=== PATIENT | female | born 1935 | race Caucasian/White ===

== ENCOUNTER → 2017-08-29 11:39 | Outpatient (CLI) | payer MEDICARE, OTHER, SELFPAY ==
--- NOTE | 2017-08-29 11:46 | NVE_ITS ---
Venous Exam Indications: 729.5 Pain in limb. IMPRESSIONS 1. There is no evidence of significant Reflux. 2. No evidence of deep or superficial vein thrombosis involving the left lower extremity Left lower extremity venous duplex evaluation. Doppler flow study including spectral analysis, color and sanchez scale imaging. Location: Vascular laboratory. Patient status: Outpatient. CRITICAL FINDINGS - Reported to: MADELYN - Read back and verified. - 08/29/17 - 1215 - NONE Tables: Venous flow and imaging: + +-------+ + Location Overall Flow properties + +-------+ + Left common femoral Patent Normal phasicity; spontaneous; normal augmentation; compressible + +-------+ + Left saphenofemoral junction Patent Compressible + +-------+ + Left profunda femoral Patent Compressible + +-------+ + Left femoral Patent Normal phasicity; spontaneous; normal augmentation; compressible + +-------+ + Left greater saphenous Patent Normal phasicity; spontaneous; normal augmentation; compressible + +-------+ + Left popliteal Patent Normal phasicity; spontaneous; normal augmentation; compressible + +-------+ + Left posterior tibial Patent Compressible + +-------+ + Left peroneal Patent Compressible + +-------+ + Left gastrocnemius Patent Compressible + +-------+ + Left soleal Patent Compressible + +-------+ + (Report amended ) Electronically signed by: Kirill Washburn [id number]
== END ==
PROVIDERS: PCP Internal Medicine; Visit Provider Internal Medicine
DX: M79.605 Pain in left leg (principal); R60.0 Localized edema
CPT/HCPCS: 93971

== ENCOUNTER → 2017-09-15 14:00 | Outpatient (CLI) | payer MEDICARE, OTHER, SELFPAY ==
--- NOTE | 2017-09-15 14:07 | XR_ITS ---
EXAM: XR lumbar spine min 4V HISTORY: Generalized back pain ITS.REASON: LUMBAGO WITH LT SCIATICA ORDERING PHYSICIAN: Amber Saunders PATIENT AGE: 82 years COMPARISON: Lumbar spine 10/27/2016 FINDINGS: There is normal lordotic curvature of the lumbar spine. There is moderate kyphotic curvature of the thoracic spine. There are multilevel degenerative changes with disc space narrowing and anterior ossific spurring most prominent at the T11-12, T12-L1 and L1-2 levels. There are hypertrophic facet changes at multiple levels especially L4-5 and L5-S1. There is generalized osteopenia. There is no definite pars defect. The SI joints appear normal. There is prominent diffuse arteriosclerotic calcification of the abdominal aorta without evidence of aneurysm. IMPRESSION: Prominent diffuse degenerative changes basically stable from the previous exam most prominent at the thoracolumbar junction, no acute compression fracture seen
--- NOTE | 2017-09-15 14:07 | XR_ITS ---
XR knee LT 4V Comparison: Left tib-fib 1718 History: Pain at the knee. Difficult to position unable to stand. Left lateral knee pain Technique: Weightbearing AP, lateral and Pozo views were performed as well as oblique. Findings: . There is narrowing at the lateral compartment most evident towards the the lateral margin of the narrowed lateral compartment... Degenerative Arthritic changes most evident here at the lateral compartment... Chondrocalcinosis was better seen on September 06, 2017 left lower leg radiograph in seen to involving at both medial lateral compartment; but was most evident at lateral compartment. Chondrocalcinosis can be seen often is degenerative in nature but can be seen with pseudogout and other conditions. The lateral film shows a definite moderate/generous joint effusion at suprapatellar bursa.. The sunrise view shows subtle lateral tilt and very slight lateral bias of the patella at patellofemoral joint. Mild diffuse demineralization. Impression: ======== Joint effusion Narrowing, & degenerative arthritic changes most evident developing at the lateral compartment
== END ==
PROVIDERS: PCP Internal Medicine Adolescent Medicine; Visit Provider Nurse Practitioner Family
DX: M54.42 Lumbago with sciatica, left side (principal); M25.562 Pain in left knee; G89.29 Other chronic pain
CPT/HCPCS: 72110; 73564

== ENCOUNTER → 2017-09-19 09:57 | Outpatient (REF) | payer MEDICARE, OTHER, SELFPAY ==
[2017-09-19 10:13] LABS: INR 1.11 (0.9-1.1); Prothrombin Time 11.4 seconds (9.4-11.8)
== END ==
LOC: LAB 09:57
PROVIDERS: Visit Provider Internal Medicine Adolescent Medicine
DX: Z79.01 Long term (current) use of anticoagulants (principal); Z51.81 Encounter for therapeutic drug level monitoring
CPT/HCPCS: 85610

== ENCOUNTER → 2017-12-10 14:53 | Outpatient (CLI) | payer MEDICARE, OTHER, SELFPAY ==
[2017-12-10 15:30] LABS: Basophils % 0.2 % (0.1-2.0); Eosinophils # 0.2 K/mm3 (0.0-0.4); Hematocrit 40.3 % (37.0-47.0); Hemoglobin 12.6 g/dL (12.2-16.2); Lymphocytes # 1.9 K/mm3 (0.7-4.5); Lymphocytes % 17.1 K/mm3 (10-50); Mean Corpuscular HGB Conc 31.3 g/dL (31.8-35.4); Mean Corpuscular Hemoglobin 29.7 pg (27.0-31.2); Mean Platelet Volume 8.1 fl (7.4-10.4); Monocytes # 0.6 K/mm3 (0.1-1.0); Monocytes % 5.9 % (1.7-9.3); Neutrophils # 8.2 K/mm3 (1.8-7.8); Neutrophils % 74.8 % (37.0-80.0); Platelet Count 287 K/mm3 (142-424); Red Blood Count 4.24 M/mm3 (4.20-5.40); White Blood Count 10.9 K/mm3 (4.8-10.8)
[2017-12-10 15:37] LABS: INR 1.29 (0.9-1.1); Prothrombin Time 13.2 seconds (9.4-11.8)
== END ==
PROVIDERS: PCP Internal Medicine Adolescent Medicine; Visit Provider Nurse Practitioner Family
DX: Z79.899 Other long term (current) drug therapy (principal); Z79.01 Long term (current) use of anticoagulants
CPT/HCPCS: 85025; 85610

== ENCOUNTER 2018-01-24 14:00 | Outpatient (RCR) | payer MEDICARE, OTHER, SELFPAY ==
--- NOTE | 2017-11-17 13:39 | HMH.PTOPWND ---
Rehab Outpt Wound Evaluation Rehab OP Wound Evaluation Start: 11/17/17 12:58 Freq: Status: Active Protocol: Document 11/17/17 13:30 PHORNE (Rec: 11/17/17 13:39 PHORNE [id number]) Electronically Signed By Nicolas Ramirez, PT 11/17/17 13:30 Subjective/History History History Pt is 82 yowf who presents with c/o julianne LE edema and tenderness x ~ 3-4 mos. Pt reports she did have increased pain initially, but no pain now. She is resident of [facility] and has limited mobility at baseline. She reports left LE worse than left and julianne LE are very tender to palpation. SHe has hx of CHANO, left elbow ORIF, cardiac arrythmia, appy. Subjective Subjective She currently reports no pain, but has previously had considerable pain especially in the left lower leg. Wound Eval Wound Right Anterior [place] Wound Type Skin Tear Is This a Chronic Wound No Wound Length (cm) 1.0 Wound Width (cm) 1.5 Wound Bed Appearance Beefy Red Percentage Granulated (%) 100 Wound Margins Description Well Defined Surrounding Tissue Appearance [place] Purple Edema Type Pitting Edema Degree 3+ Query Text:1+ Trace, Barely Detectable, Rebound 15-30 seconds 2+ Moderate, Slight Indentation, Rebound 10-20 seconds 3+ Deep, Deeper Indentation, Rebound > 30 seconds 4+ Very Deep, Rebound > 60 seconds Edema Appearance Shiny Tight Puffy Open Sores Drainage Description Serous Drainage Amount Small Primary Dressing Silver Dressing Comment Opticell Ag Dressing Change Patient Tolerance Tolerated Well Lymphedema Eval Classification of Lymphedema Secondary Lymphedema Yes: CVI Stemmer's sign Stemmer's Sign no Stage of Lymphedema Lymphedema stages Stage I (Pitting edema, reduces w/ elevation, no fibrosis) Skin Changes Dry Skin Yes Taut, Shiny Skin Yes Redness Yes Wounds Yes Discoloration of Skin Yes
== END 2018-01-24 14:05 | disposition home or self-care (01) ==
LOC: PT 14:00
PROVIDERS: Visit Provider Nurse Practitioner Family
DX: R60.9 Edema, unspecified (principal)
CPT/HCPCS: 97140; 97163; 97760

== ENCOUNTER 2019-05-10 13:00 | Outpatient (RCR) | payer MEDICARE, OTHER, SELFPAY ==
--- NOTE | 2019-05-08 13:43 | HMH.PTOPWND ---
Rehab Outpt Wound Evaluation Rehab OP Wound Evaluation Start: 05/08/19 13:00 Freq: Status: Active Protocol: Document 05/08/19 13:29 RADHA (Rec: 05/08/19 13:43 PHORNE [id number]) Electronically Signed By Nicolas Ramirez, PT 05/08/19 13:29 Subjective/History History History Pt is 84 yowf who presents with c/o B LE edema for many years, now worse x ~ 2 mos and worse in R LE vs L LE. She presents with significant 4+ pitting edema and erythema. She is very tender to palpation on B gastroc, but is already taking coumadin for anti-coagulation at baseline. She reports she does not walk, only transfers from bed to chair. She also sleeps in a recliner due to chronic LBP. She has PMH of HTN, CHANO, Appy, A-fib, chronic LBP, and cellulitis. She also presents with a possible skin tear on the posterior L calf due to hitting her leg [facility] wheelchair [facility] Subjective Subjective Currently no c/o pain at rest, 3/10 pain at worst, 4+ tenderness to palpation in B gastroc. Wound Eval Wound Left Posterior Lateral Calf Wound Type Skin Tear Is This a Chronic Wound No Wound Length (cm) 4.0 Wound Width (cm) 3.0 Wound Bed Appearance Dusky Red,Pale Wound Margins Description Well Defined Edema Type Pitting Edema Degree 4+ Query Text:1+ Trace, Barely Detectable, Rebound 15-30 seconds 2+ Moderate, Slight Indentation, Rebound 10-20 seconds 3+ Deep, Deeper Indentation, Rebound > 30 seconds 4+ Very Deep, Rebound > 60 seconds Edema Appearance Shiny,Puffy,Open Sores,Red Surrounding Tissue Temperature Warm Drainage Description Serosanguineous Drainage Amount Large Primary Dressing Absorbant Pad Comment opticell Wound Secondary Dressing Type Composite Comment optifoam gentle border Wound Debridement Amount of Tissue None Removed Dressing Change Con
== END 2019-05-10 13:05 | disposition home or self-care (01) ==
LOC: PT 13:00
PROVIDERS: PCP Internal Medicine Adolescent Medicine; Referring Provider Nurse Practitioner Family; Visit Provider Nurse Practitioner Family
DX: I89.0 Lymphedema, not elsewhere classified (principal)
CPT/HCPCS: 29580; 97140; 97163; 97597

== ENCOUNTER → 2019-10-12 11:52 | Outpatient (CLI) | payer MEDICARE, OTHER, SELFPAY ==
--- NOTE | 2019-10-12 12:00 | XR_ITS ---
PROCEDURE: XR ELBOW LT MIN 3V CLINICAL INDICATION: wires sticking out COMPARISON: CR ELBL3 ELBOW-LT-3 VIEWS from 05/24/2012 FINDINGS: One of the 2 metallic pins seen in the leg her non apparently has migrated posteriorly and either protrudes through or approximates the skin interface just posterior to the tip of the olecranon. There is a stable old apparently unfused fragment of the olecranon. The iiefwq-[id number]-exrxc wire remains in place. There is generalized osteopenia. The radial head is intact. IMPRESSION: Status post ORIF fracture of the olecranon with apparent old unfused fracture fragment and slight interval posterior migration of 1 of the 2 metallic pins which could be protruding through the skin surface as noted on the history. Dictated by: Dr. Lane Madsen MD 10/12/2019 12:[address] Madsen MD in [place] 10/12/2019 12:43
== END ==
PROVIDERS: PCP Internal Medicine Adolescent Medicine; Visit Provider Orthopaedic Surgery
DX: M25.522 Pain in left elbow (principal)
CPT/HCPCS: 73080

== ENCOUNTER 2019-10-16 06:08 | Day surgery (SDC) | payer MEDICARE, OTHER, SELFPAY ==
[2019-10-16] VITALS (7 sets, daily range): BP systolic 104–146; BP diastolic 62–93; PULSE 62–101; RESP 16–20; TEMP 36.2–36.5; O2SAT 92–98; BMI 31.8
--- NOTE | 2019-10-16 07:12 | P.PN_ITS ---
[facility] Anesthesia Checklist - Patient Identification Patient Identification: Arm Band, Verbal (Name & ) - Structural Data Admitted From: [place] ([facility], later [facility]) Planned Operative Procedure/s: Left elbow hardware removal Consent for Planned Operative Procedure(s) Verified: Yes Verified Documents: Surgical Consent, History and Physical - NPO Status Verified Time NPO: 20:00 - Chart Verification Results Verified: None - Additional verifications Anesthesia Reactions: Yes (a-fib) Hx Blood Transfusions: No Blood Transfusion Reaction: No - Airway Assessment C-Spine Mobility Assessed: Yes TMJ Mobility Assessed: Yes Dentition: Good Dentition - Neurological Assessment Level of Consciousness: Awake, Alert, Appropriate, Follows Commands Hx Seizures: No Numbness or tingling in extremities: No - Anesthesia Plan Anesthesia Risk discussed: Yes Anesthesia Plan: Verified ASA Class: III Anesthesia Type: MAC w/Block [facility] History I have reviewed the patient's past medical history: Yes Medical History: Reports:: Arrhythmia, Atrial Fibrillation, Cancer (skin), Congestive Heart Failure, Hyperlipidemia, Hypertension Denies:: Diabetes Mellitus Type 1, Diabetes Mellitus Type 2, Internal Pacemaker, MRSA, Seizures *Have you ever received a pneumonia vaccine?: No *Have you received a flu vaccine this season?: Yes Other Medical History: Reports: Hypothyroidism, Sinus Problems, Thyroid Disease, Other (cellulitis, spondylolosis). Denies: Blood Transfusion Reaction Anesthesia experience/problems:: None Laterality Cases: Left: Other Other Surgeries: Yes: Appendectomy, Hysterectomy-Total. No: Pacemaker Amputation: No Fractures: No - *Social History Last grade of school completed: 7th or 8th Smoking Status: Former smoker Alcohol Intake: never Substance Use Type: denies use *Occupational Status:: retired Housing: [facility] *Travel in the last 8 weeks: None Family Hx:: Coronary Artery Disease, Diabetes
[2019-10-16 07:20] LABS: Coronavirus 19 IgG Antibody Negative (Negative); Coronavirus 19 IgM Antibody Negative (Negative)
--- NOTE | 2019-10-16 07:30 | ECG_ITS ---
APPROVED REPORT Exam: Resting ECG HR:89 bpm ECG Measurements Heart Rate 89 AXES QRSd 68 QRS -20 QT 342 T 15 QTc 416 <Conclusion> Atrial fibrillation Dig Effect Abnormal ECG Electronically signed by : Abraham Cook, 10/16/2019 13:46:32
--- NOTE | 2019-10-16 09:04 | XR_ITS ---
PROCEDURE: XR ELBOW LT 2V CLINICAL INDICATION: HARDWARE REMOVAL LEFT ELBOW COMPARISON: CR XR ELBOW LT MIN 3V from 10/12/2019 FINDINGS: A single fluoroscopic spot film in the lateral projection shows removal of the 2 orthopedic pins and the kricjr-mb-sclvo wire. The unfused bone fragment of the tip of the olecranon is again seen. Fluoroscopic time was 9 seconds. IMPRESSION: Satisfactory removal of orthopedic hardware Dictated by: Dr. Lane Madsen MD 10/16/2019 09:[address] Madsen MD in [place] 10/16/2019 09:21
--- NOTE | 2019-10-16 09:13 | XR_ITS ---
PROCEDURE: XR ELBOW LT 2V CLINICAL INDICATION: post op removal of orthopedic pins and wire COMPARISON: CR ELBL3 ELBOW-LT-3 VIEWS from 05/24/2012 FINDINGS: On the lateral projection again noted is the bone fragment adjacent to the tip of the olecranon probably representing old unfused fracture fragment or possibly heterotopic new bone formation in the triceps tendon near the attachment to the olecranon. There is minor cortical irregularity of the coronoid process of the olecranon fossa probably posttraumatic. The radial head is intact. IMPRESSION: Satisfactory removal of orthopedic pins and wire Dictated by: Dr. Lane Madsen MD 10/16/2019 10:[address] Madsen MD in [place] 10/16/2019 10:12
--- NOTE | 2019-10-16 12:25 | HMH.OPNOTE ---
Date of procedure: 10/16/19 Pre-op Diagnosis:: painful orthopaedic hardware, L elbow Post-op Diagnosis:: painful orthopaedic hardware, L elbow Procedure performed:: removal of hardware L elbow Surgeon:: Viviane Meza MD Back Tender(s):: Shelley Arreola SEARCH CONSULTANT:: Stanley Santana Anesthesia: MAC, regional, local Estimated blood loss (mL): 10 Clinical Note:: 84yo F s/p ORIF L olecranon fracture in September 2010 by another physician. The operative report is not available at this time. The patient reports doing well post-operatively, but she's had prominent hardware since surgery. It hasn't bothered her so it's been left alone. Over the past several months she's bumped her elbow on several objects, such as door frames, and she's developed a painful spot over the posterior elbow. No drainage reported from the elbow until the past few days. She sits with her left elbow over the side of her wheelchair and it frequently catches furniture and doorframes. There is a small ulceration over the olecranon, with palpable wires, but no hardware is visible. She denies fevers or chills, no purulent draiange from the elbow, no numbness or tingling in the LUE. She has chronic atrial fibrillation and is on coumadin. She had a DVT diagnosed around 4 months ago. She resides at [place] and her PCP is Dr. Xie. I discussed treatment options with the patient, and have recommended removal of hardware. The hardware is prominent and she frequently bumps it on things. Now, one of the k-wires is protruding through the skin; it is not visible at the time, but there is an area of ulceration of the skin and I feel the wire will soon be visible. This will lead to continued pain and possible infection. I spoke with Dr. Xie via telephone on 10/12/19, and he believes the patient is safe to undergo a minimally invasive procedure such as superficial hardware removal. The patient is on coumadin, which was held on 10/12/19. She was given vitamin K as well as started on Lovenox. Her DVT was recent and it is not safe to stop anticoagulation completely. INR was rechecked yesterday and found to be 1.7; lovenox was held last night. I discussed the risk of the procedure with the patient, including the risk of bleeding, infection, repeat olecranon fracture, hematoma formation, persistence of pain, wound healing complications, and need for further surgery in the future. The patient vocalized understanding and provided informed consent for the procedure. Operative findings:: K-wire x2 and cerclage wire removed intact Operative note:: The patient was identified in preoperative holding and the left elbow initialed by myself with marking pen. She was then seen by anesthesia, who administered a supraclavicular nerve block in preoperative holding. After the block was completed, the patient was transferred to the operating room and placed supine on the operative table. She has significant thoracic kyphosis and was unable to lie flat, so her torso was propped up on several blankets and pillows. She was comfortable in this position, so intravenous sedation given. Just prior to transfer to the OR, while in preoperative holding, 1 g vancomycin infusion was begun. All bony prominences were well-padded and the right upper extremity secured on a well-padded arm board. The left upper extremity was then prepped and draped in the usual sterile fashion. Timeout was performed, identifying the correct patient, correct procedure, and correct site. The procedure was begun by bringing the left upper extremity across the patient's abdomen, exposing the posterior aspect of the forearm and elbow. A 15 blade was used to excise the ulcerative lesion over the tip of the olecranon, where one k-wire was nearly protruding through the skin. A tourniquet was not used, as the patient only had a supraclavicular nerve block and was awake during the procedure; I wanted to attempt to limit her tourniquet related pain, and this was a superficial
== END 2019-10-16 10:06 | disposition home or self-care (01) ==
PROVIDERS: PCP Internal Medicine Adolescent Medicine; Visit Provider Orthopaedic Surgery
PROC: (CPT 20680; principal; 2019-10-16 07:30)
DX: T84.84XA Pain due to internal orthopedic prosthetic devices, implants and grafts, initial encounter (principal); Z47.2 Encounter for removal of internal fixation device; G89.18 Other acute postprocedural pain; I48.20 Chronic atrial fibrillation, unspecified; E03.9 Hypothyroidism, unspecified; I10 Essential (primary) hypertension; E78.5 Hyperlipidemia, unspecified; Z88.1 Allergy status to other antibiotic agents; Z79.01 Long term (current) use of anticoagulants; Z79.899 Other long term (current) drug therapy
CPT/HCPCS: 20680; 73070; 86328; 93005; 94640; 96374; J0670; J3370

== ENCOUNTER 2020-04-08 19:58 | Inpatient (IN) | payer MEDICARE, OTHER, SELFPAY ==
[2020-04-08 20:01] VITALS: BP 113/66; PULSE 95; RESP 18; TEMP 36.7; O2SAT 94; BMI 31.1
--- NOTE | 2020-04-08 20:15 | XR_ITS ---
PROCEDURE: XR HIP LT 2-3V W/PELVIS CLINICAL INDICATION: fall Posttraumatic pain COMPARISON: CR PELAP PELVIS AP ONLY from 09/11/2014 CR XR PELVIS 1-2V from 04/08/[address] HIP LT WO CON from 04/08/2020 FINDINGS: There is mild diffuse generalized osteopenia. There is a nondisplaced mildly impacted intertrochanteric fracture of the left hip. A nondisplaced component also involves the proximal femoral oblique in nature. Coarse calcifications are present involving the proximal shaft of left hip consistent with a bone infarction. This is not significantly changed. IMPRESSION: Nondisplaced intertrochanteric fracture of left hip with a component of the fracture extending into the proximal femoral shaft medially. Dictated by: Kirill Washburn MD 04/09/2020 05:22 Kirill Washburn MD in [place] 04/09/2020 05:22
--- NOTE | 2020-04-08 20:15 | CT_ITS ---
PROCEDURE: CT HEAD/BRAIN WO CON CLINICAL INDICATION: fall w/ head injury Head injury with headache/pain, contusion, abrasion or hematoma COMPARISON: No exams were available for comparison TECHNIQUE: Axial images obtained. All CT scans at the facility use one or more dose reduction, viz: automated exposure control, ma/kV adjustment per patient size (including targeted exams where dose is matched to indication, i.e. head), or iterative reconstruction technique. FINDINGS: No midline shift, mass effect, intracranial hemorrhage, hydrocephalus, or extra-axial fluid collection is evident. There is generalized atrophy with hypoattenuation of the periventricular white matter consistent with microangiopathic changes.. Study is somewhat limited secondary to streak artifact and patient positioning limitations. The calvarium has an unremarkable appearance. No mastoid effusion. No sinus air-fluid level. IMPRESSION: No acute intracranial finding Dictated by: Kirill Washburn MD 04/09/2020 06:51 Kirill Washburn MD in [place] 04/09/2020 06:51
--- NOTE | 2020-04-08 20:15 | CT_ITS ---
PROCEDURE: CT CERVICAL SPINE WO CON CLINICAL INDICATION: fall w/ head injury Neck injury with pain, contusion/abrasion or hematoma, cervical sprain/strain the COMPARISON: No exams were available for comparison TECHNIQUE: Axial images obtained with sagittal and coronal reformats. All CT scans at the facility use one or more dose reduction, viz: automated exposure control, ma/kV adjustment per patient size (including targeted exams where dose is matched to indication, i.e. head), or iterative reconstruction technique. Axial spiral CT scanning performed of the cervical spine beginning at the base of the skull and continuing to the upper T-spine. 3-D multiplanar reconstruction with 3-D manipulation of volumetric data set in image rendering was completed by the radiologist and/or technologist with the supervision of the radiologist on independent workstation. FINDINGS: There is diffuse osteopenia/demineralization. There is exaggeration of the cervical lordosis. Multilevel degenerative disc disease is present with endplate osteophytes and uncovertebral hypertrophy. No acute fracture or dislocation. There is 3 mm retrolisthesis of C2 on C3 which may be degenerative in nature. IMPRESSION: 1. No acute fracture or dislocation. 2. Diffuse osteopenia with multilevel cervical spondylosis. Dictated by: Kirill Washburn MD 04/09/2020 09:58 Kirill Washburn MD in [place] 04/09/2020 09:58
--- NOTE | 2020-04-08 20:15 | XR_ITS ---
PROCEDURE: XR CHEST PORTABLE CLINICAL HISTORY: fall Posttraumatic pain COMPARISON: CT ABDPELW/O CT ABD PELVIS W/O CONTRAST from 06/20/2015 FINDINGS: There are low lung volumes. Mild cardiomegaly without failure. No lobar consolidation or collapse. There is a small nodular opacity in the left lung base measuring 4 mm consistent with a calcified granuloma as seen on an older CT scan of 06/20/2015.. There remaining lungs are clear. No acute bony abnormalities. IMPRESSION: No acute findings. Dictated by: Kirill Washburn MD 04/09/2020 05:24 Kirill Washburn MD in [place] 04/09/2020 05:24
[2020-04-08 20:26] LABS: Adenovirus,PCR Not Detected (NotDetected); Bordetella Pertussis Not Detected (NotDetected); Chlamydophila Pneumoniae, PCR Not Detected (NotDetected); Coronavirus 19, PCR Not Detected (NotDetected); Coronavirus 229E Not Detected (NotDetected); Coronavirus NL63 Not Detected (NotDetected); Coronavirus OC43 Not Detected (NotDetected); Coronovirus HKU1,PCR Not Detected (NotDetected); Human Metapneumovirus Not Detected (NotDetected); Influenza A, PCR Not Detected (NotDetected); Influenza AH1, 2009 Not Detected (NotDetected); Influenza AH1, PCR Not Detected (NotDetected); Influenza AH3,PCR Not Detected (NotDetected); Influenza B, PCR Not Detected (NotDetected); Mycoplasma Pneumoniae, PCR Not Detected (NotDetected); Parainfluenza 1, PCR Not Detected (NotDetected); Parainfluenza 2, PCR Not Detected (NotDetected); Parainfluenza 3, PCR Not Detected (NotDetected); Parainfluenza 4, PCR Not Detected (NotDetected); Respiratory Syncytial Virus Not Detected (NotDetected); Rhinovirus/Enterovirus Not Detected (NotDetected)
[2020-04-08 20:27] LABS: Basophils # 0.1 K/mm3 (0-0.2); Basophils % 0.5 % (0.1-2.0); Eosinophils # 0.3 K/mm3 (0.0-0.4); Eosinophils % 2.2 % (0.1-12.0); Hematocrit 39.5 % (37.0-47.0); Hemoglobin 12.6 g/dL (12.2-16.2); Lymphocytes # 2.4 K/mm3 (0.7-4.5); Lymphocytes % 19.6 % (10-50); Mean Corpuscular HGB Conc 31.8 g/dL (31.8-35.4); Mean Corpuscular Hemoglobin 29.9 pg (27.0-31.2); Mean Corpuscular Volume 93.8 fl (81-99); Mean Platelet Volume 7.7 fl (7.4-10.4); Monocytes # 0.7 K/mm3 (0.1-1.0); Monocytes % 6.2 % (1.7-9.3); Neutrophils # 8.6 K/mm3 (1.8-7.8); Neutrophils % 71.6 % (37.0-80.0); Platelet Count 317 K/mm3 (142-424); Red Blood Count 4.21 M/mm3 (4.20-5.40); Red Cell Distribution Width 13.3 % (11.5-17.5)
[2020-04-08 20:33] LABS: Alanine Aminotransferase 24 U/L (12-78); Albumin Level 4.1 g/dl (3.5-5.0); Albumin/Globulin Ratio 1.1 (1.1-1.8); Alkaline Phosphatase 83 U/L (38-126); Anion Gap 13.5 mEq/L (5-15); Aspartate Amino Transferase 32 U/L (14-36); Bilirubin,Total 0.6 mg/dl (0.2-1.3); Blood Urea Nitrogen 31 mg/dl (7-17); Calcium 9.6 mg/dl (8.4-10.2); Carbon Dioxide 29 mmol/L (22.0-30.0); Chloride 98 mmol/L (98-107); Creatinine Clearance Estimated 31 mL/min (50-200); Estimated Glomerular Filt Rate 31 ml/min (>60); GFR (African American) 37 ML/MIN (>60); Globulin 3.6 g/dL (1.3-3.2); Glucose 130 mg/dl (74-100); Potassium 4.5 mmoL/L (3.5-5.1); Sodium 136 mmol/L (136-145); Total Protein,Serum 7.7 g/dl (6.3-8.2)
[2020-04-08 20:38] LABS: C-Reactive Protein 117.2 mg/L (0-4)
[2020-04-08 20:52] LABS: Procalcitonin 0.157 ng/mL (0.0-2.0)
[2020-04-08 21:21] LABS: Erythrocyte Sedimentation Rate 103 mm/hr (0-30)
--- NOTE | 2020-04-08 21:34 | HMH.EDFALL ---
ED Disposition Clinical Impression: Prolonged INR, Edema of left lower extremity, Renal insufficiency, Elevated erythrocyte sedimentation rate, Elevated C-reactive protein (CRP), Obesity (BMI 30.0-34.9) Hip fracture Qualifiers: Encounter type: initial encounter Fracture type: closed Laterality: left Qualified Code(s): S72.002A - Fracture of unspecified part of neck of left femur, initial encounter for closed fracture Disposition: Admitted As Inpatient Condition on Discharge: Serious Referrals: Moises Xie MD [Primary Care Provider] - - Critical Care Critical Care Time: No Attestation: On 04/08/20, the high probability of a clinically significant, sudden or life threatening deterioration of the following system(s) required my full and direct attention, intervention and personal management. The time I documented below is in addition to time spent performing reported procedures but includes the following listed in this critical care notation. Medical Decision Making - Medical Records Medical records reviewed: Yes: I reviewed the patient's medical records. - Brodie Inquiry Pt receiving controlled substance: No Vital Signs: 04/08/20 20:01 Temperature 98.0 F Temperature Source Oral Pulse Rate [Right] 95 H Respiratory Rate 18 Blood Pressure [Right Arm] 113/66 Blood Pressure Mean [Right Arm] 81 Blood Pressure Source [Right Arm] Automatic Cuff Blood Pressure Position [Right Arm] Supine 02 Sat by Pulse Oximetry 94 L Oxygen Delivery Method Room Air - Lab Data Lab results reviewed: Yes: I reviewed the patient's lab results. Lab Results 04/08/20 20:10: WBC 12.0 H, RBC 4.21, Hgb 12.6, Hct 39.5, MCV 93.8, MCH 29.9, MCHC 31.8, RDW 13.3, Plt Count 317, MPV 7.7, Neut % (Auto) 71.6, Lymph % (Auto) 19.6, [place] % (Auto) 6.2, Eos % (Auto) 2.2, Baso % (Auto) 0.5, Neut # (Auto) 8.6 H, Lymph # (Auto) 2.4, [place] # (Auto) 0.7, Eos # (Auto) 0.3, Baso # (Auto) 0.1, ESR 103 H 04/08/20 20:10: Sodium 136, Potassium 4.5, Chloride 98, Carbon Dioxide 29, Anion Gap 13.5, BUN 31 H, Creatinine 1.60 H, Estimated Creat Clear 31, Estimated GFR 31 L, Est GFR ( Amer) 37 L, Glucose 130 H, Calcium 9.6, Total Bilirubin 0.6, AST 32, ALT 24, Alkaline Phosphatase 83, C-Reactive Protein 117.2 H, Total Protein 7.7, Albumin 4.1, Globulin 3.6 H, Albumin/Globulin Ratio 1.1, Procalcitonin 0.157 04/08/20 20:10: Chlamy pneumoniae PCR Not detected, Adenovirus (PCR) Not detected, B. pertussis DNA (PCR) Not detected, Coronavirus OC43 (PCR) Not detected, Coronavirus HKU1 (PCR) Not detected, Coronavirus 229E (PCR) Not detected, SARS-CoV-2 (PCR) Not detected, Coronavirus NL63 (PCR) Not detected, Human Metapneumovir PCR Not detected, Influenza A (H1) PCR Not detected, Influ A (H1N1/09) PCR Not detected, Influenza A (H3) PCR Not detected, Influenza Type A (PCR) Not detected, Influenza Type B (PCR) Not detected, M. pneumoniae (PCR) Not detected, Parainfluenza 1 (PCR) Not detected, Parainfluenza 2 (PCR) Not detected, Parainfluenza 3 (PCR) Not detected, Parainfluenza 4 (PCR) Not detected, RSV (PCR) Not detected, Entero/Rhino (PCR) Not detected 04/08/20 20:10: PT 55.8 H, INR 5.91 H Result diagrams: 04/08/20 20:10 04/08/20 20:10 Orders (Tests/Meds): ED MEDICATIONS Generic Name Dose Route Start Last Admin Trade Name Freq PRN Reason Stop Dose Admin Sodium Chloride 1,000 mls @ 999 mls/hr 04/08/20 20:30 04/08/20 20:32 Sod Chlor 0.9% 1000ml Bag IV 04/08/20 21:30 999 mls/hr .Q1H1M RIGOBERTO Administration Discontinued Medications Generic Name Dose Route Start Last Admin Trade Name Freq PRN Reason Stop Dose Admin Ketorolac Tromethamine 30 mg 04/08/20 20:19 04/08/20 20:32 Ketorolac 30mg/Ml Vial IV 04/08/20 20:20 30 mg ONCE ONE Administration Phytonadione 5 mg 04/08/20 22:48 04/08/20 22:59 Phytonadione 10mg/Ml Ampule SQ 04/08/20 22:49 5 mg ONCE ONE Administration ORDERS Category Date Time Status CT cervical spine wo con Stat Ca
--- NOTE | 2020-04-08 21:59 | CT_ITS ---
PROCEDURE: CT HIP LT WO CON CLINICAL HISTORY: FX hip Fall with injury and pain COMPARISON: CT ABDPELW/O CT ABD PELVIS W/O CONTRAST from 06/20/2015 TECHNIQUE: Axial images obtained with sagittal and coronal reformats. All CT scans at the facility use one or more dose reduction, viz: automated exposure control, ma/kV adjustment per patient size (including targeted exams where dose is matched to indication, i.e. head), or iterative reconstruction technique. FINDINGS: There is diffuse osteopenia. Comminuted intertrochanteric fracture noted of the left hip. Stippled coarse calcifications are present involving the proximal diaphyseal region of the left femur consistent with bone infarction. There is a mild impaction of the fracture fragments. Avulsion fracture noted of the lesser trochanter. This fracture line extends into the proximal shaft of the femur medially. There is soft tissue swelling in the left hip consistent with acute fracture with hemorrhage. IMPRESSION: Acute intertrochanteric fracture of the left hip with mild impaction of the fracture fragments. Avulsion of the lesser trochanter is noted with the fracture line extending into the proximal shaft of the left femur. There is diffuse osteopenia. Coarse stippled calcifications in the proximal left femoral shaft consistent with bone island. Enchondroma is also a consideration. Dictated by: Kirill Washburn MD 04/09/2020 06:20 Kirill Washburn MD in [place] 04/09/2020 06:20
[2020-04-08 22:45] LABS: INR 5.91 (0.9-1.1); Prothrombin Time 55.8 seconds (9.4-11.8)
[2020-04-08 23:21] LABS: Microscopic, Urine URINE MICROSCOPIC (MICROSCOPIC)
[2020-04-08 23:26] LABS: Appearance,Urine CLEAR (Clear); Bilirubin,Urine Negative (Negative); Blood, Urine Negative (Negative); Color,Urine YELLOW (Yellow); Glucose,Urine (UA) Negative (Negative); Ketones,Urine Negative (Negative); Leukocyte Esterase,Urine Negative (Negative); Nitrate,Urine Negative (Negative); PH,Urine 5.5 (5.0-8.5); Protein,Urine Negative (Negative); Specific Gravity, Urine 1.015 (1.005-1.030); Urobilinogen,Urine 0.2 EU/dl (0.2)
[2020-04-08 23:44] LABS: WBC,Urine Occasional #/hpf (0-3)
[2020-04-08 23:52] VITALS: BP 117/58; PULSE 82; RESP 16; TEMP 36.7; O2SAT 94
[2020-04-08 23:58] VITALS: BP 86/64; PULSE 85; RESP 20; TEMP 36.5; O2SAT 96
--- NOTE | 2020-04-08 23:58 | PC.NURSE ---
Addendum entered by Rosy Castillo CNA 04/09/20 00:04: CORRECTION. CORRECT TIME [id number] Original Note: PT ARRIVED TO THE FLOOR VIA STRETCHER FROM ED WITH STAFF [id number]
[2020-04-09] VITALS (13 sets, daily range): BP systolic 93–120; BP diastolic 45–71; PULSE 91–134; RESP 16–22; TEMP 36.5–36.8; O2SAT 93–100; BMI 33.5; BMI 33.3
[2020-04-09 06:50] LABS: Basophils # 0.1 K/mm3 (0-0.2); Basophils % 0.4 % (0.1-2.0); Eosinophils # 0.2 K/mm3 (0.0-0.4); Eosinophils % 1.7 % (0.1-12.0); Hematocrit 32.8 % (37.0-47.0); Lymphocytes # 1.8 K/mm3 (0.7-4.5); Mean Corpuscular HGB Conc 32.4 g/dL (31.8-35.4); Mean Corpuscular Hemoglobin 30.3 pg (27.0-31.2); Mean Corpuscular Volume 93.5 fl (81-99); Mean Platelet Volume 7.6 fl (7.4-10.4); Monocytes # 0.9 K/mm3 (0.1-1.0); Neutrophils # 9.7 K/mm3 (1.8-7.8); Neutrophils % 76.8 % (37.0-80.0); Platelet Count 254 K/mm3 (142-424); Red Blood Count 3.51 M/mm3 (4.20-5.40); Red Cell Distribution Width 13.2 % (11.5-17.5); White Blood Count 12.6 K/mm3 (4.8-10.8)
[2020-04-09 06:54] LABS: Chloride 101 mmol/L (98-107); Potassium 4.3 mmoL/L (3.5-5.1); Sodium 136 mmol/L (136-145)
[2020-04-09 06:57] LABS: Anion Gap 10.3 mEq/L (5-15); Blood Urea Nitrogen 35 mg/dl (7-17); Carbon Dioxide 29 mmol/L (22.0-30.0); Creatinine Clearance Estimated 34 mL/min (50-200); Estimated Glomerular Filt Rate 31 ml/min (>60); GFR (African American) 37 ML/MIN (>60)
[2020-04-09 06:58] LABS: Calcium 8.9 mg/dl (8.4-10.2); Glucose 98 mg/dl (74-100)
[2020-04-09 07:00] LABS: Hemoglobin 10.6 g/dL (12.2-16.2)
[2020-04-09 07:38] LABS: INR 5.78 (0.9-1.1); Prothrombin Time 54.7 seconds (9.4-11.8)
--- NOTE | 2020-04-09 08:00 | CA_ITS ---
APPROVED REPORT EXAM: Comprehensive 2D, Doppler, and color-flow Echocardiogram Biostatistics Director: Treva Warner RVT Ht: 5 ft 2 in Wt: 170lbs BSA: 1.78 BP: 113/66 mmHg Indications: PRE-OP,LT HIP FX,A-FIB,CHF,MURMUR,HLD,HTN TDS-PT FLAT ON BACK 2D Dimensions LVOT 1.79 cm (M/F) 1.5-2.5 LA Volume 153.30 mL LA Volume Index 86.12 mL/m2 (M/F) 16-34 M-Mode Dimensions RVDd 3.22 cm (0.9-2.6) LA Diam 6.62 cm (1.9-4.0) LVDd 3.22 cm (3.5-5.7) Ao Diam 3.22 cm (2.0-3.7) LVDs 2.10 cm (3.5-5.7) IVSd 1.34 cm (0.6-1.1) PWd 0.49 cm (0.6-1.1) EF (Teich) 65.40% FS 34.80% EDV (Teich) 41.60 mL ESV (Teich) 14.40 mL Aortic Valve AI PHT 602.00 ms AO Peak GR. 5.20 mmHg Pulmonary Valve PV Peak Velocity 95.00 (50-150 cm/s) Tricuspid Valve TR P. Velocity 316.00 cm/s RAP Estimate 10.00 mmHg RVSP 49.80 mmHg Left Ventricle Left atrium is moderately enlarged, left ventricle is normal size, mild concentric left ventricular hypertrophy, visually estimated ejection fraction 55% with no regional wall motion abnormality, diastolic parameters are inconclusive. Right Ventricle Right atrium is moderately enlarged, right ventricle is mildly dilated with normal contractility. Aortic Valve Aortic valve is thickened and calcified without aortic stenosis or aortic insufficiency. Mitral Valve Mitral valve leaflets are minimally thickened, there is mild mitral regurgitation. Tricuspid Valve Tricuspid valve is minimally thickened, there is mild tricuspid regurgitation, calculated right ventricular systolic pressure is 50 mmHg. Pulmonic Valve Pulmonic valve is poorly visualized. Great Vessels Aortic root is normal size. Pericardium No significant pericardial effusion noted. Conclusion 1. Moderate biatrial enlargement, normal left ventricular size, mild concentric left ventricular hypertrophy, visually estimated ejection fraction 55% with no regional wall motion abnormality, diastolic parameters are inconclusive. 2. Moderately enlarged right ventricle with normal contractility. 3. Thickened and calcified aortic valve without aortic stenosis or aortic insufficiency. 4. Mild mitral and tricuspid regurgitation, calculated right ventricular systolic pressure is 50 mmHg. 5. No significant pericardial effusion noted. Electronically signed by : Kwasi Ocampo, 04/09/2020 18:54:55
--- NOTE | 2020-04-09 08:34 | HMH.HP ---
*Admission Date: 04/08/20 *Chief complaint: Fall at [facility] with left intertrochanteric hip frac *History of present illness: 85-year-old white female on warfarin therapy chronically who fell in the bathroom at her personal snf and had intense pain, transferred to emergency department where she was found to have fracture of the intertrochanteric left hip. Admitted to hospital for orthopedic consultation and further management. Complicating her factors is her elevated INR at 5. [facility] History I have reviewed the patient's past medical history: Yes Medical History: Reports:: Arrhythmia, Atrial Fibrillation, Congestive Heart Failure, Hyperlipidemia, Hypertension Denies:: Cancer, Diabetes Mellitus Type 1, Diabetes Mellitus Type 2, Internal Pacemaker, MRSA, Seizures *Have you ever received a pneumonia vaccine?: Yes *Have you received a flu vaccine this season?: Yes Other Medical History: Reports: Hypothyroidism, Sinus Problems, Thyroid Disease, Other. Denies: Blood Transfusion Reaction Laterality Cases: Left: Other Other Surgeries: Yes: Appendectomy, Hysterectomy-Total. No: Pacemaker Amputation: No Fractures: No - *Social History Smoking Status: Former smoker Alcohol Intake: never Substance Use Type: denies use *Occupational Status:: retired Housing: long-term Household Members: other *Travel in the last 8 weeks: None Family Hx:: Coronary Artery Disease, Diabetes Review of Systems - Review of Systems Review of systems:: pertinent systems reviewed and negative unless documented below Patient complains of pain. Otherwise has no breathing problems or chest pain except she complained that the electrical equipment technician caused her pain when she pushed down with the echo probe. - *Neurologic Denies localized weakness, Denies headache(s), Denies seizure-like activity Meds Home Medications Medication Instructions Recorded Confirmed Type Losartan Potassium 50 mg PO DAILY 09/06/17 04/08/20 History Lovastatin [Altoprev] 20 mg PO DAILY 09/06/17 04/08/20 History Potassium Chloride [Klor-Con 10mEq 10 meq PO BID 09/06/17 04/08/20 History tab] acetaminophen 500 mg capsule 500 mg PO Q6H PRN 10/12/19 04/08/20 History cholecalciferol (vitamin D3) 1,250 1,000 mcg PO DAILY cap 10/12/19 04/08/20 History mcg (50,000 unit) capsule furosemide 40 mg tablet 40 mg PO DAILY 10/12/19 04/08/20 History levothyroxine 25 mcg capsule 50 mcg PO DAILY cap 10/12/19 04/08/20 History meclizine 25 mg capsule 25 mg PO TID PRN cap 10/12/19 04/08/20 History metoprolol succinate 200 mg 200 mg PO DAILY 10/12/19 04/08/20 History capsule sprinkle, ext. release 24 hr multivitamin with iron 1 tab PO DAILY 10/12/19 04/08/20 History oxycodone-acetaminophen 5 mg-325 1 tab PO HS tab 10/12/19 04/08/20 History mg tablet sodium chloride 0.65 % nasal spray 1 spray INTRANASAL ONCE PRN ml 10/12/19 04/08/20 History aerosol spironolactone 25 mg tablet 25 mg PO BID 10/12/19 04/08/20 History warfarin 1 mg tablet 1 mg PO DAILY 10/12/19 04/08/20 History warfarin 2.5 mg tablet 2 mg PO DAILY tab 10/12/19 04/08/20 History Cetirizine HCl [Zyrtec 10mg ODT*] 10 mg PO HS 04/08/20 04/08/20 History Docusate Sodium 200 mg PO DAILY PRN 04/08/20 04/08/20 History Gabapentin [Gabapentin 100mg Cap] 100 mg PO BID 04/08/20 04/08/20 History Guaifenesin/Dextromethorphan 10 ml PO QID PRN 04/08/20 04/08/20 History [Robitussin DM 200mg/20mg 10mL UDC] Hydrocod/Acet 5/325 mg [[place] 1 tab PO Q4-6H PRN 04/08/20 04/08/20 History 5/325mg tablet] Hydrocortisone Acetate [Anucort-Hc] 25 mg RC BID 04/08/20 04/08/20 History Hydrocortisone [Hydrocortisone 1% 1 dose TP TID PRN 04/08/20 04/08/20 History Cream 30gm Tube] Loperamide HCl [Imodium A-D] 2 mg PO Q4-6H PRN 04/08/20 04/08/20 History Losartan Potassium [Cozaar 50mg 50 mg PO DAILY 02/09/21 02/09/21 History Tablets] Nystatin [Nystatin Cr 100,000 30 gm TP BID PRN 04/08/20 04/08/20 History Units/GM 30GM]
--- NOTE | 2020-04-09 09:26 | P.CONPHA_ITS ---
[facility] Pharmacy VTE Monitoring - Patient Demographics Admission date: 04/09/20 Report Date: 04/09/20 Time: 09:26 Allergies/Adverse Reactions: Patient Allergies cephalexin [From KEFLEX] Allergy (Mild, Verified 04/09/20 04:39) clindamycin [CLINDAMYCIN] Allergy (Mild, Verified 04/09/20 04:39) levofloxacin [From LEVAQUIN] Allergy (Mild, Verified 04/09/20 04:39) metronidazole [From FLAGYL] Allergy (Mild, Verified 04/09/20 04:39) Height: 1.57 m Weight: 82.554 kg Patient Problems: Current Active Problems Edema of left lower extremity (Acute) Hip fracture (Acute) Prolonged INR (Acute) Renal insufficiency (Acute) Elevated erythrocyte sedimentation rate (Acute) Elevated C-reactive protein (CRP) (Acute) Obesity (BMI 30.0-34.9) (Acute) Chronic atrial fibrillation (Acute) - VTE Risk Labs: VTE Related Lab Results Hgb 10.6 g/dL (12.2-16.2) L D 04/09/20 05:30 Hct 32.8 % (37.0-47.0) L 04/09/20 05:30 Plt Count 254 K/mm3 (142-424) 04/09/20 05:30 PT 54.7 seconds (9.4-11.8) H 04/09/20 05:30 INR 5.78 (0.9-1.1) H 04/09/20 05:30 BUN 35 mg/dl (7-17) H 04/09/20 05:30 Creatinine 1.60 mg/dl (0.52-1.04) H 04/09/20 05:30 Estimated Creat Clear 34 mL/min (50-200) 04/09/20 05:30 Was VTE Risk Assessment Performed: Yes VTE Score: 8 VTE Risk Level: Moderate Risk Clinical Trial Participant: No - Prophylaxis VTE Prophylaxis Ordered?: Yes Types of VTE Prophylaxis: TEDS Knee High, Pharmacological Pharmacologic Type: Warfarin (pt supratherapeutic)
--- NOTE | 2020-04-09 09:28 | HMH.PHAINT ---
HOME MEDICATION LIST COMPLETED USING MAR FROM [facility]
--- NOTE | 2020-04-09 11:44 | HMH.ORTHOCON ---
*Admission Date: 04/09/20 *Reason for consult:: Intertrochanteric fracture, left femur *History of present illness: Patient is [an 85-year-old female] admitted to the hospital overnight for management of left hip fracture. She was brought to the ER with [LEFT] hip pain after a [fall going [facility] She was unable to get up and walk after the fall. Patient denies any dizziness, headache, chest or neck pain. She usually walks independently. She says her pain is well controlled at rest but trying to move the LEFT leg causes hip pain. She denies loss of consciousness, chest pain and shortness of breath. She has history of bilateral lower extremity edema and erythema. Her past medical history includes erythema, atrial fibrillation, congestive heart failure, hypertension and hyperlipidemia. She is on long-term warfarin therapy and her INR is over five this morning. [facility] History I have reviewed the patient's past medical history: Yes Medical History: Reports:: Arrhythmia, Atrial Fibrillation, Congestive Heart Failure, Hyperlipidemia, Hypertension Denies:: Cancer, Diabetes Mellitus Type 1, Diabetes Mellitus Type 2, Internal Pacemaker, MRSA, Seizures *Have you ever received a pneumonia vaccine?: Yes *Have you received a flu vaccine this season?: Yes Other Medical History: Reports: Hypothyroidism, Sinus Problems, Thyroid Disease, Other. Denies: Blood Transfusion Reaction Laterality Cases: Left: Other Other Surgeries: Yes: Appendectomy, Hysterectomy-Total. No: Pacemaker Amputation: No Fractures: No - *Social History Smoking Status: Former smoker Alcohol Intake: never Substance Use Type: denies use *Occupational Status:: retired Housing: senior living Household Members: other *Travel in the last 8 weeks: None Family Hx:: Coronary Artery Disease, Diabetes Review of Systems - Review of Systems Review of systems:: pertinent systems reviewed and negative unless documented below - Constitutional Denies chills, Denies fever(s) - Eyes Denies change in vision - ENT Denies change in voice - *Cardiovascular Denies chest pain, Denies shortness of breath - *Respiratory Denies chest congestion, Denies cough - *Gastrointestinal Denies abdominal pain, Denies change in bowel habits - *Musculoskeletal Reports abnormal walking, Reports joint pain, Reports limited joint movement - *Neurologic Denies localized weakness, Denies headache(s), Denies seizure-like activity - Endocrine Denies cold intolerance, Denies heat intolerance Meds Home Medications Medication Instructions Recorded Confirmed Type Lovastatin [Altoprev] 20 mg PO DAILY 09/06/17 04/08/20 History Potassium Chloride [Klor-Con 10mEq 20 meq PO DAILY 09/06/17 04/09/20 History tab] acetaminophen 500 mg capsule 500 mg PO Q6H PRN 10/12/19 04/08/20 History cholecalciferol (vitamin D3) 1,250 1,000 mcg PO DAILY cap 10/12/19 04/08/20 History mcg (50,000 unit) capsule furosemide 40 mg tablet 40 mg PO DAILY 10/12/19 04/08/20 History meclizine 25 mg capsule 25 mg PO TID PRN cap 10/12/19 04/08/20 History metoprolol succinate 200 mg 200 mg PO DAILY 10/12/19 04/08/20 History capsule sprinkle, ext. release 24 hr multivitamin with iron 1 tab PO DAILY 10/12/19 04/08/20 History oxycodone-acetaminophen 5 mg-325 1 tab PO HS tab 10/12/19 04/08/20 History mg tablet sodium chloride 0.65 % nasal spray 1 spray INTRANASAL ONCE PRN ml 10/12/19 04/08/20 History aerosol spironolactone 25 mg tablet 50 mg PO BID 10/12/19 04/09/20 History warfarin 1 mg tablet 1 mg PO TUTH 10/12/19 04/09/20 History Cetirizine HCl [Zyrtec 10mg ODT*] 10 mg PO HS 04/08/20 04/08/20 History Gabapentin [Gabapentin 100mg Cap] 100 mg PO BID 04/08/20 04/08/20 History Guaifenesin/Dextromethorphan 10 ml PO QID PRN 04/08/20 04/08/20 History [Robitussin DM 200mg/20mg 10mL UDC] Hydrocortisone Acetate [Anucort-Hc] 25 mg RC BID 04/08/20 04/08/20 History Hydrocortisone [Hydr
--- NOTE | 2020-04-09 13:18 | SW/DCPLANNER ---
Addendum entered by Alma Arce 04/14/20 15:15: UPDATES HAVE BEEN SENT TO [facility] WITH PATIENT DISCHARGING BACK THERE IN THE SKILLED UNIT FOR REHAB SERVICES WHEN MEDICALLY CLEARED TO LEAVE THE HOSPITAL... DISPOSITION UNCERTAIN BUT SHOULD BE IN THE NEXT FEW DAYS.. Addendum entered by Ania Nunez 04/10/20 12:26: I have notified Mena with [facility] that this patient will not be having surgery today. Original Note: THIS PATIENT PRESENTED INTO THE HOSPITAL AFTER AN APPARENT FALL IN THE BATHROOM THAT RESULTED A LEFT HIP FX FROM [facility]... I HAVE MADE CONTACT WITH [facility] TO SEE IF THEY CAN ACCEPT HER IN THE SKILLED REHAB SECTION ONCE SHE HAS HAD SURGERY AND READY FOR DISCHARGE AND SHE SAID THEY DO HAVE A BED FOR HER... HER SURGERY IS SCHEDULED FOR [facility] () PENDING SHE IS STABLE TO HAVE IT.... I HAVE SENT UPDATES THUS FAR AND WILL KEEP IN TOUCH WHEN SHE IS READY FOR A DISPOSITION....
--- NOTE | 2020-04-09 18:05 | PC.NURSE ---
Remains on room air. Pt has rested in bed most of shift, has c/o pain this afternoon, admin per APR. At VS check noted that pt's HR was elevated. Pt in chronic A-Fib, SBP 96. HR ranging 120-140's. Dr. Xie notified @ 1626. Orders obtained for 0.125 mg Digoxin IV x1 dose, meds given and tely strips printed per protocol. 1655 - HR continues to be 120-130's, BP 108/51. Orders received for 10 mg Card[address] IV x1. Dr. Xie @ bedside @ 1735. Orders given for 30 mg Cardizem Q6H PO. Meds given per APR. Pt on tely being monitored. 1816 - HR sustaining 120-130's. Dr. Xie notified. 1832 - Orders received for Cardizem gtt, titrate to obtained HR < 100. Transfer to step-down.
[2020-04-10] VITALS (15 sets, daily range): BP systolic 93–137; BP diastolic 46–70; PULSE 77–140; RESP 16–23; TEMP 36.6–37; O2SAT 91–100; BMI 33.9
--- NOTE | 2020-04-10 08:36 | PC.NURSE ---
This Am pt became combative with staff, refusing to have lab drawn this am, and wanting to go home and call the [employer] I am being tortured . Pt has been agitated with staff since receiving total basin bath this ~ 1hr before this incident. Pt has pulled of tele leads, BP cuff, and pulse ox and will not keep on. MD Xie made aware of pts change in status and new order for Risperidone 0.25mg po. Pt refusing to take from this RN. Pt was more compliant with day shift RN and other staff and did take. Pt continues to be in afib and on cardizem gtt. Currently infusing at 5mg/hr. BP has had been in 90s for most of the shift but MAPs >65.
[2020-04-10 08:48] LABS: Basophils % 0.2 % (0.1-2.0); Eosinophils # 0.1 K/mm3 (0.0-0.4); Eosinophils % 1.1 % (0.1-12.0); Hematocrit 33.1 % (37.0-47.0); Hemoglobin 10.5 g/dL (12.2-16.2); Lymphocytes # 1.1 K/mm3 (0.7-4.5); Lymphocytes % 10.6 % (10-50); Mean Corpuscular HGB Conc 31.6 g/dL (31.8-35.4); Mean Corpuscular Hemoglobin 29.8 pg (27.0-31.2); Mean Corpuscular Volume 94.5 fl (81-99); Mean Platelet Volume 7.9 fl (7.4-10.4); Monocytes # 0.7 K/mm3 (0.1-1.0); Monocytes % 6.5 % (1.7-9.3); Neutrophils # 8.4 K/mm3 (1.8-7.8); Neutrophils % 81.5 % (37.0-80.0); Platelet Count 255 K/mm3 (142-424); Red Blood Count 3.51 M/mm3 (4.20-5.40); Red Cell Distribution Width 13.3 % (11.5-17.5); White Blood Count 10.3 K/mm3 (4.8-10.8)
--- NOTE | 2020-04-10 09:06 | HMH.ACPN2 ---
Internal Medicine - PN: Subj *Date: 04/10/20 *Time: 09:06 Interval history: Overall patient struggled through the night with increased heart rates, diltiazem drip was started because of atrial fibrillation with rapid response, had some help with reduction of rate below 100 when patient was resting. Also had quite a bit of mental status change with some aggressive behavior and disorientation to place and time. 1 dose of Resporal was given a couple hours ago which seems to have helped her. She is still very unhappy and somewhat disoriented. Exam Vital signs and Labs for Last 24 Hours: Temp Pulse Resp BP Pulse Ox 98.4 F 140 H 23 123/57 L 95 04/10/20 04:00 04/10/20 07:00 04/10/20 08:34 04/10/20 07:00 04/10/20 04:00 Laboratory Results - last 24 hr 04/10/20 08:25: WBC 10.3, RBC 3.51 L, Hgb 10.5 L, Hct 33.1 L, MCV 94.5, MCH 29.8, MCHC 31.6 L, RDW 13.3, Plt Count 255, MPV 7.9, Neut % (Auto) 81.5 H, Lymph % (Auto) 10.6, Daniels % (Auto) 6.5, Eos % (Auto) 1.1, Baso % (Auto) 0.2, Neut # (Auto) 8.4 H, Lymph # (Auto) 1.1, Daniels # (Auto) 0.7, Eos # (Auto) 0.1, Baso # (Auto) 0.0 I & O for Last 24 hours: Intake & Output 04/07/20 04/08/20 04/09/20 04/10/20 11:59 11:59 11:59 11:59 Intake Total 1240 / 1240 600 / 600 Output Total 1450 / 1450 Balance 1240 / 1240 -850 / -850 Weight 182 lb 184 lb 4 oz Narrative: Patient is alert, suspicious, angry about being thrown around by your nurses. Asks if Dr. Cook will come see her-he was her physician but has not seen her for over 5 years since his cessation of inpatient practice. Heart rate irregular and rapid as noted. Perfusion is good. Blood pressure is acceptable at 100 systolic. Lungs have fairly good air entry, abdomen soft and nontender. Distal edema is not noted. Lots of pain when she moves around her hip. Assessment and Plan (1) Chronic atrial fibrillation Status: Acute Category: Medical Code(s): I48.20 - Chronic atrial fibrillation, unspecified (2) Hip fracture Status: Acute Qualifiers: Encounter type: initial encounter Fracture type: closed Laterality: left Qualified Code(s): S72.002A - Fracture of unspecified part of neck of left femur, initial encounter for closed fracture Category: Medical Code(s): S72.009A - Fracture of unspecified part of neck of unspecified femur, initial encounter for closed fracture (3) Obesity (BMI 30.0-34.9) Status: Acute Category: Medical Code(s): E66.9 - Obesity, unspecified (4) Prolonged INR Status: Acute Category: Medical Code(s): R79.1 - Abnormal coagulation profile (5) Renal insufficiency Status: Acute Category: Medical Code(s): N28.9 - Disorder of kidney and ureter, unspecified - Assessment and plan all Dx Assessment and Plan for all problems:: 1. Hip fracture-pain control continues. Orthopedic consultation appreciated. INR pending this morning to see if patient is suitable candidate for surgery. 2. Atrial fibrillation with rapid response-low blood pressure makes this problematic. On diltiazem drip. Cardiology consultation requested. 3. 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 UA on admission was clean but she had had 3 or 4 [facility]-we will get urine culture obtained today and start Unasyn intravenously because of her history of recurrent infections.
[2020-04-10 09:11] LABS: Chloride 105 mmol/L (98-107); Potassium 4.4 mmoL/L (3.5-5.1); Sodium 138 mmol/L (136-145)
[2020-04-10 09:14] LABS: Blood Urea Nitrogen 24 mg/dl (7-17); Creatinine Clearance Estimated 49 mL/min (50-200); Estimated Glomerular Filt Rate 47 ml/min (>60); GFR (African American) 57 ML/MIN (>60)
[2020-04-10 09:15] LABS: Anion Gap 13.4 mEq/L (5-15); Carbon Dioxide 24 mmol/L (22.0-30.0); Glucose 97 mg/dl (74-100)
[2020-04-10 09:16] LABS: INR 3.19 (0.9-1.1); Prothrombin Time 31.9 seconds (9.4-11.8)
--- NOTE | 2020-04-10 09:38 | PC.NURSE ---
0932 - Spoke w/ B oc Moe will not be having surgery per Dr. Crowell.
--- NOTE | 2020-04-10 10:05 | PC.NURSE ---
1000- Pt's HR 70-80's, BP 88/52. Remains in A-Fib. Dr Xei notified and orders obtained to DC cardizem gtt, continue PO cardizem. Pt may come out of step-down.
[2020-04-10 10:16] LABS: Microscopic, Urine URINE MICROSCOPIC (MICROSCOPIC)
[2020-04-10 10:41] LABS: Appearance,Urine CLEAR (Clear); Bilirubin,Urine Negative (Negative); Blood, Urine 2+ (Negative); Color,Urine YELLOW (Yellow); Glucose,Urine (UA) Negative (Negative); Ketones,Urine 1+ (Negative); Leukocyte Esterase,Urine TRACE (Negative); Nitrate,Urine POSITIVE (Negative); PH,Urine 5.5 (5.0-8.5); Protein,Urine Negative (Negative); Urobilinogen,Urine 0.2 EU/dl (0.2)
[2020-04-10 10:55] LABS: Bacteria,Urine 1+ /lpf; Squamous Epithelial Cell,Urine Occasional #/hpf (0-5); Yeast,Urine Occasional /lpf
--- NOTE | 2020-04-10 11:43 | HMH.CNCARD ---
History of Present Illness Consult date: 04/10/20 Requesting physician: Moises Xie Consult reason: atrial fibrillation, pre-op evaluation Chief complaint: fall History of present illness: This is a 89-year-old white female who was admitted to the hospital after a fall at home. The patient did break her left hip and will require surgical intervention for the hip fracture. She does have chronic atrial fibrillation and takes Coumadin for this. Upon arrival to the hospital the patient was supratherapeutic with an INR of 5.9. This is down to 3.1 today. The patient sees Dr. Soni in [place] as her derrick man. She denies any chest pain or pressure. She denies any shortness of breath or edema. However, the patient does have chronic lymphedema and that is why she is currently in assisted living because she was having issues with ambulation. Her daughter states that she thinks that is what happened when she fell that her edema has been causing her problems and made her fall. She been at the lymphedema clinic here at [facility] but her edema has been getting worse per her daughter's report. She denies any fever, chills, nausea, vomiting, diarrhea, PND or orthopnea. The patient did get confused through the night last night and somewhat combative. She is still little confused this morning but she is pleasant. She is very hard of hearing. [facility] History I have reviewed the patient's past medical history: Yes Medical History: Reports:: Arrhythmia, Atrial Fibrillation, Congestive Heart Failure, Hyperlipidemia, Hypertension Denies:: Cancer, Diabetes Mellitus Type 1, Diabetes Mellitus Type 2, Internal Pacemaker, MRSA, Seizures *Have you ever received a pneumonia vaccine?: Yes *Have you received a flu vaccine this season?: Yes Other Medical History: Reports: Hypothyroidism, Sinus Problems, Thyroid Disease, Other. Denies: Blood Transfusion Reaction Laterality Cases: Left: Other Other Surgeries: Yes: Appendectomy, Hysterectomy-Total. No: Pacemaker Amputation: No Fractures: No - *Social History Smoking Status: Former smoker Alcohol Intake: never Substance Use Type: denies use *Occupational Status:: retired Housing: [facility] Household Members: other *Travel in the last 8 weeks: None Family Hx:: Coronary Artery Disease, Diabetes Meds Home Medications Medication Instructions Recorded Confirmed Type Lovastatin [Altoprev] 20 mg PO DAILY 09/06/17 04/08/20 History Potassium Chloride [Klor-Con 10mEq 20 meq PO DAILY 09/06/17 04/09/20 History tab] acetaminophen 500 mg capsule 500 mg PO Q6H PRN 10/12/19 04/08/20 History cholecalciferol (vitamin D3) 1,250 1,000 mcg PO DAILY cap 10/12/19 04/08/20 History mcg (50,000 unit) capsule furosemide 40 mg tablet 40 mg PO DAILY 10/12/19 04/08/20 History meclizine 25 mg capsule 25 mg PO TID PRN cap 10/12/19 04/08/20 History metoprolol succinate 200 mg 200 mg PO DAILY 10/12/19 04/08/20 History capsule sprinkle, ext. release 24 hr multivitamin with iron 1 tab PO DAILY 10/12/19 04/08/20 History oxycodone-acetaminophen 5 mg-325 1 tab PO HS tab 10/12/19 04/08/20 History mg tablet sodium chloride 0.65 % nasal spray 1 spray INTRANASAL ONCE PRN ml 10/12/19 04/08/20 History aerosol spironolactone 25 mg tablet 50 mg PO BID 10/12/19 04/09/20 History warfarin 1 mg tablet 1 mg PO TUTH 10/12/19 04/09/20 History Cetirizine HCl [Zyrtec 10mg ODT*] 10 mg PO HS 04/08/20 04/08/20 History Docusate Sodium 200 mg PO DAILY PRN 04/08/20 04/08/20 History Gabapentin [Gabapentin 100mg Cap] 100 mg PO BID 04/08/20 04/08/20 History Guaifenesin/Dextromethorphan 10 ml PO QID PRN 04/08/20 04/08/20 History [Robitussin DM 200mg/20mg 10mL UDC] Hydrocortisone Acetate [Anucort-Hc] 25 mg RC BID 04/08/20 04/08/20 History Hydrocortisone [Hydrocortisone 1% 1 dose TP TIDP PRN 04/08/20 04/09/20 History Cream 30gm Tube] Loperamide HCl [Imodium A-D] 2 mg PO Q4HP PRN 04/08/20 04/09/20 History Nystatin
--- NOTE | 2020-04-10 17:19 | PC.NURSE ---
Has rested @ intervals, much more cooperative w/ staff since receiving risperidone this AM. Pt placed on 1 L O2 per nasal cannula while pt was asleep, noted on monitor that sats dropped to 88% while she was resting. Sat now ranging 97-100%. Remains in A-Fib, rate 70-80's. Pt medicated per APR for pain w/ relief verbalized from pt. Pt's daughter did visitt today and was at bedside for majority of shift. Has been turned and repositioned Q2H. Oral care performed. Camejo cath to drain @ bedside w/ clear yellow urine. No BM this shift. VSS. Dr Crowell seen pt this afternoon, plan for surgery in the AM.
[2020-04-11] VITALS (19 sets, daily range): BP systolic 103–145; BP diastolic 61–83; PULSE 46–120; RESP 18–24; TEMP 36.6–37.6; O2SAT 89–99; BMI 34.0
--- NOTE | 2020-04-11 05:13 | P.PN_ITS ---
Subjective Date: 04/10/20 Time: 17:45 Principal diagnosis: Intertrochanteric fracture, left femur Interval history: 85-year-old female admitted for management of left intertrochanteric femur fracture. Patient had a turbulent past 24 hours with tachycardia and change in mental status. Nursing staff reports that patient has been confused and combative at times last night but is much improved now. She still appears somewhat confused and states the staff on the floor have been rough with her. She is very hard of hearing. Patient could not be taken to surgery today because her INR is still fairly high. PN: Obj Ex Vital signs: Temp Pulse Resp BP Pulse Ox 99.7 F H 84 23 109/61 L 93 L 04/11/20 04:00 04/11/20 04:00 04/11/20 04:00 04/11/20 04:00 04/11/20 04:00 Narrative: Laboratory Results - last 24 hr 04/10/20 08:25: WBC 10.3, RBC 3.51 L, Hgb 10.5 L, Hct 33.1 L, MCV 94.5, MCH 29.8, MCHC 31.6 L, RDW 13.3, Plt Count 255, MPV 7.9, Neut % (Auto) 81.5 H, Lymph % (Auto) 10.6, [place] % (Auto) 6.5, Eos % (Auto) 1.1, Baso % (Auto) 0.2, Neut # (Auto) 8.4 H, Lymph # (Auto) 1.1, [place] # (Auto) 0.7, Eos # (Auto) 0.1, Baso # (Auto) 0.0 04/10/20 08:25: PT 31.9 H, INR 3.19 H 04/10/20 08:25: Sodium 138, Potassium 4.4, Chloride 105, Carbon Dioxide 24, Anion Gap 13.4, BUN 24 H D, Creatinine 1.10 H D, Estimated Creat Clear 49, Estimated GFR 47 L, Est GFR ( Amer) 57 L D, Glucose 97, Calcium 9.0 04/10/20 08:25: Blood Type A Positive, Antibody Screen Negative 04/10/20 10:00: Urine Color Yellow, Urine Appearance Clear, Urine pH 5.5, Ur Specific [place] 1.020, Urine Protein Negative, Urine Glucose (UA) Negative, Urine Ketones 1+, Urine Blood 2+, Urine Nitrate Positive, Urine Bilirubin Negative, Urine Urobilinogen 0.2, Ur Leukocyte Esterase Trace, Urine RBC 3-5, Urine WBC 3-5, Ur Squamous Epith Cells Occasional, Urine Bacteria 1+, Urine Yeast Occasional Exam: General appearance: Alert, awake, no acute distress Cardiovascular: Irregularly irregular heart rate; palpable peripheral pulses in both upper extremities Respiratory: no respiratory distress; speaks in full sentences ABD: soft and nontender. On examination of the lower extremities, there is shortening of the LEFT leg and the foot is externally rotated. On examination of the LEFT hip the skin is intact. No rashes or lesions noted. Patient is tender over the hip/proximal femur. Any attempted movements of the hip are painful. Thigh and calf are soft and nontender. Bilateral lower extremity edema and erythema over the distal legs/ankles. Dorsalis pedis and posterior tibial pulses are palpable 1+ bilaterally. Sensation is grossly intact. Patient has good range of foot, ankle and toe movements - Urinary Catheter Management Camejo Cath placed during this visit: no Progress Note: A&P (1) Chronic atrial fibrillation Status: Acute (2) Hip fracture Status: Acute (3) Obesity (BMI 30.0-34.9) Status: Acute (4) Prolonged INR Status: Acute (5) Renal insufficiency Status: Acute Assessment and Plan for All Diagnoses:: 85-year-old female with left hip intertrochanteric fracture awaiting surgery. Her INR is still markedly elevated to perform surgery safely. Target INR is 1.5 or below before undertaking surgical intervention. Patient is somewhat disoriented and confused. Continue medical management as per Dr. Xie. Keep patient n.p.o. from midnight for possible surgical repair of hip fracture tomorrow.
--- NOTE | 2020-04-11 05:16 | PC.NURSE ---
Pt has been pleasant and cooperative this shift. Alert to person. No complaints of pain. Pt is on room air with sats. >90%. Lungs CTA. No edema noted. Redness/Excoriation with fluid-filled blisters noted to abdominal folds and under bilateral breasts. F/C is patent and draining clear, yellow urine at bedside to gravity. No BM thus far. Pt has been turned/repositioned Q2H this shift. 20 G peripheral IV in the LT AC, LT forearm, and RT forearm are all patent. NS is infusing @ 50 ML/HR. VSS. Call light within reach. Will continue to monitor.
[2020-04-11 06:43] LABS: Basophils # 0.1 K/mm3 (0-0.2); Basophils % 0.4 % (0.1-2.0); Eosinophils # 0.1 K/mm3 (0.0-0.4); Eosinophils % 1.1 % (0.1-12.0); Hematocrit 32.3 % (37.0-47.0); Hemoglobin 10.4 g/dL (12.2-16.2); Lymphocytes # 1.2 K/mm3 (0.7-4.5); Mean Corpuscular HGB Conc 32.1 g/dL (31.8-35.4); Mean Corpuscular Hemoglobin 29.9 pg (27.0-31.2); Mean Corpuscular Volume 93.3 fl (81-99); Mean Platelet Volume 7.8 fl (7.4-10.4); Monocytes # 0.7 K/mm3 (0.1-1.0); Monocytes % 5.9 % (1.7-9.3); Neutrophils # 9.9 K/mm3 (1.8-7.8); Neutrophils % 82.6 % (37.0-80.0); Platelet Count 257 K/mm3 (142-424); Red Blood Count 3.46 M/mm3 (4.20-5.40); Red Cell Distribution Width 13.1 % (11.5-17.5)
[2020-04-11 06:46] LABS: Chloride 105 mmol/L (98-107); Potassium 4.4 mmoL/L (3.5-5.1); Sodium 137 mmol/L (136-145)
[2020-04-11 06:48] LABS: Blood Urea Nitrogen 16 mg/dl (7-17); Creatinine Clearance Estimated 55 mL/min (50-200); Estimated Glomerular Filt Rate 60 ml/min (>60); GFR (African American) 72 ML/MIN (>60)
[2020-04-11 06:49] LABS: Alanine Aminotransferase 21 U/L (12-78); Albumin Level 3.2 g/dl (3.5-5.0); Alkaline Phosphatase 74 U/L (38-126); Anion Gap 9.4 mEq/L (5-15); Aspartate Amino Transferase 37 U/L (14-36); Bilirubin,Total 0.8 mg/dl (0.2-1.3); Carbon Dioxide 27 mmol/L (22.0-30.0); Globulin 3.3 g/dL (1.3-3.2); Glucose 115 mg/dl (74-100); Total Protein,Serum 6.5 g/dl (6.3-8.2)
[2020-04-11 06:58] LABS: INR 1.72 (0.9-1.1); Prothrombin Time 18.2 seconds (9.4-11.8)
--- NOTE | 2020-04-11 10:47 | HMH.PNCARD ---
Subjective Date: 04/11/20 Time: 10:00 Principal diagnosis: Intertrochanteric fracture, left femur and Atrial fib Interval history: 89-year-old female who was admitted to the hospital after a fall at home. The patient did break her left hip and will require surgical intervention for the hip fracture. She does have chronic atrial fibrillation and takes Coumadin for this. Upon arrival to the hospital the patient was supratherapeutic with an INR of 5.9. INR is 1.7 today. Denies any chest pain or pressure. She denies any shortness of breath or edema. However, the patient does have chronic lymphedema and that is why she is currently in assisted living because she was having issues with ambulation. Patient is confused at this time. She is unable to answer simple questions. Very hard of hearing. Patient remains in atrial fibrillation on property assessment monitor. Patient does have nonsustainable high heart rates. Would like to keep her on the lower dose of diltiazem due the effects of the sedation from pending surgery. After surgery we do recommend patient be placed on a long-acting calcium channel gracie for her chronic A. fib to control heart rate. Dr. Crowell was at bedside. He does not plan on patient having surgery today due to INR at 1.5. He states they will draw another INR in the morning. If INR is 1.5 or below, he will proceed with the surgery. Please continue monitor patient's heart rate and blood pressure. Please notify cardiology of any changes in patient's status. Thank you for allowing cardiology to participate in the care of this patient. Exam Vital signs and Labs for Last 24 Hours: Temp Pulse Resp BP Pulse Ox 99.0 F 120 H 24 120/69 93 L 04/11/20 08:00 04/11/20 08:00 04/11/20 08:00 04/11/20 08:00 04/11/20 08:00 Laboratory Results - last 24 hr 04/10/20 10:00: Urine Color Yellow, Urine Appearance Clear, Urine pH 5.5, Ur Specific [place] 1.020, Urine Protein Negative, Urine Glucose (UA) Negative, Urine Ketones 1+, Urine Blood 2+, Urine Nitrate Positive, Urine Bilirubin Negative, Urine Urobilinogen 0.2, Ur Leukocyte Esterase Trace, Urine RBC 3-5, Urine WBC 3-5, Ur Squamous Epith Cells Occasional, Urine Bacteria 1+, Urine Yeast Occasional 04/11/20 06:02: WBC 12.0 H, RBC 3.46 L, Hgb 10.4 L, Hct 32.3 L, MCV 93.3, MCH 29.9, MCHC 32.1, RDW 13.1, Plt Count 257, MPV 7.8, Neut % (Auto) 82.6 H, Lymph % (Auto) 10.0, [place] % (Auto) 5.9, Eos % (Auto) 1.1, Baso % (Auto) 0.4, Neut # (Auto) 9.9 H, Lymph # (Auto) 1.2, [place] # (Auto) 0.7, Eos # (Auto) 0.1, Baso # (Auto) 0.1 04/11/20 06:02: PT 18.2 H, INR 1.72 H 04/11/20 06:02: Sodium 137, Potassium 4.4, Chloride 105, Carbon Dioxide 27, Anion Gap 9.4, BUN 16 D, Creatinine 0.90, Estimated Creat Clear 55, Estimated GFR 60, Est GFR ( Amer) 72 D, Glucose 115 H, Calcium 9.0, Total Bilirubin 0.8, AST 37 H, ALT 21, Alkaline Phosphatase 74, Total Protein 6.5, Albumin 3.2 L, Globulin 3.3 H, Albumin/Globulin Ratio 1.0 L I & O for Last 24 hours: Intake & Output 04/08/20 04/09/20 04/10/20 04/11/20 23:59 23:59 23:59 23:59 Intake Total 1000 / 1000 840 / 840 1018 / 1018 698 / 698 Output Total 950 / 950 1150 / 1150 450 / 450 Balance 1000 / 1000 -110 / -110 -132 / -132 248 / 248 Weight 170 lb 180 lb 12.465 oz 184 lb 4 oz 185 lb 2 oz Microbiology Reports for the Last 24 Hours: Microbiology 04/10/20 10:00 Urine,Catheterized Urine Culture - Preliminary Gram Negative Rods - Constitutional obese, agitated - *Routine HEENT Exam Head: Present: normocephalic ENT: Present: mucous membranes moist - *Routine Neck Exam Present: supple, normal carotid upstroke. Absent: full ROM, JVD, carotid bruit, lymphadenopathy - *Routine Respiratory Exam Present: accessory muscle use, CTA bilaterally. Absent: rales, rhonchi, wheezes - *Routine Cardiovascular Exam Present: RRR, Normal S1, Normal S2, irregular rhythm, irregularly irregular. Absent: JVD
[2020-04-11 11:30] LABS: INR 1.62 (0.9-1.1); Prothrombin Time 17.2 seconds (9.4-11.8)
--- NOTE | 2020-04-11 13:44 | SUR.PREOP ---
PT'S IV IN RIGHT F/A INFILTRATED. IV REMOVED BY Allison LAURENT RN.
--- NOTE | 2020-04-11 13:50 | HMH.ORTHPN ---
Subjective Date: 04/11/20 Time: 12:00 Principal diagnosis: Intertrochanteric fracture, left femur and Atrial fib Interval history: 85-year-old female admitted for management of left intertrochanteric femur fracture. Patient has been confused and at times aggressive since yesterday. Urine exam indicative of UTI and patient is on IV Unasyn. This morning patient is difficult to communicate with any meaningful way. Her daughter is with her in the room. PN: Obj Ex Vital signs: Temp Pulse Resp BP Pulse Ox 99.0 F 120 H 24 120/69 93 L 04/11/20 08:00 04/11/20 08:00 04/11/20 08:00 04/11/20 08:00 04/11/20 08:00 Narrative: Laboratory Results - last 24 hr 04/10/20 10:00: Urine Color Yellow, Urine Appearance Clear, Urine pH 5.5, Ur Specific [place] 1.020, Urine Protein Negative, Urine Glucose (UA) Negative, Urine Ketones 1+, Urine Blood 2+, Urine Nitrate Positive, Urine Bilirubin Negative, Urine Urobilinogen 0.2, Ur Leukocyte Esterase Trace, Urine RBC 3-5, Urine WBC 3-5, Ur Squamous Epith Cells Occasional, Urine Bacteria 1+, Urine Yeast Occasional 04/11/20 06:02: WBC 12.0 H, RBC 3.46 L, Hgb 10.4 L, Hct 32.3 L, MCV 93.3, MCH 29.9, MCHC 32.1, RDW 13.1, Plt Count 257, MPV 7.8, Neut % (Auto) 82.6 H, Lymph % (Auto) 10.0, [place] % (Auto) 5.9, Eos % (Auto) 1.1, Baso % (Auto) 0.4, Neut # (Auto) 9.9 H, Lymph # (Auto) 1.2, [place] # (Auto) 0.7, Eos # (Auto) 0.1, Baso # (Auto) 0.1 04/11/20 06:02: PT 18.2 H, INR 1.72 H 04/11/20 06:02: Sodium 137, Potassium 4.4, Chloride 105, Carbon Dioxide 27, Anion Gap 9.4, BUN 16 D, Creatinine 0.90, Estimated Creat Clear 55, Estimated GFR 60, Est GFR ( Amer) 72 D, Glucose 115 H, Calcium 9.0, Total Bilirubin 0.8, AST 37 H, ALT 21, Alkaline Phosphatase 74, Total Protein 6.5, Albumin 3.2 L, Globulin 3.3 H, Albumin/Globulin Ratio 1.0 L Exam: General appearance: Drowsy, confused, no acute distress Cardiovascular: Irregularly irregular heart rate; palpable peripheral pulses in both upper extremities Respiratory: no respiratory distress noted ABD: soft and nontender. Skin: Generalized edema noted in both legs are wrapped in compression bandages. Fungal infection over the skin folds with areas of skin breakdown On examination of the lower extremities, there is shortening of the LEFT leg and the foot is externally rotated. On examination of the LEFT hip the skin is intact over the lateral aspect of the hip and thigh. Patient is tender over the hip/proximal femur. Any attempted movements of the hip are painful. Thigh and calf are soft and nontender. Bilateral lower extremity edema over both legs, feet and ankles. Dorsalis pedis and posterior tibial pulses are palpable 1+ bilaterally. Sensation is grossly intact. Patient has good range of active toe movements - Urinary Catheter Management Camejo Cath placed during this visit: no Progress Note: A&P (1) Chronic atrial fibrillation Status: Acute (2) Hip fracture Status: Acute (3) Obesity (BMI 30.0-34.9) Status: Acute (4) Prolonged INR Status: Acute (5) Renal insufficiency Status: Acute Assessment and Plan for All Diagnoses:: I have reviewed the clinical and x-ray findings with the patient's daughter. I have discussed the diagnosis, natural history and management options in detail including both nonsurgical and surgical. I have recommended surgical remediation in the form of a cephalo-medullary nailing left femur. I have explained the procedure, risks and benefits, alternatives and the expected postoperative course. I have explained about the fracture and the proposed surgical procedure utilizing paper copies of x-rays. The complications discussed include but are not limited to infection, bleeding, injury to nerves and blood vessels, DVT, PE, screw cut-out/implant failure, loss of fixation, nonunion, malunion/malrotation, osteonecrosis of the femoral head, femoral shaft fracture, painful hardware, heterotopic ossification, stiffness, weakness, i
--- NOTE | 2020-04-11 14:47 | P.PN_ITS ---
[facility] Anesthesia Checklist - Patient Identification Patient Identification: Arm Band, Family - Structural Data Admitted From: Inpatient Planned Operative Procedure/s: Left Hip Intramedullary Nailing Consent for Planned Operative Procedure(s) Verified: Yes Verified Documents: Surgical Consent, History and Physical - NPO Status Verified Time NPO: 00:00 - Additional verifications Anesthesia Reactions: Yes (a-fib) Hx Blood Transfusions: No Blood Transfusion Reaction: No - Airway Assessment C-Spine Mobility Assessed: Yes (mp2) TMJ Mobility Assessed: Yes Dentition: Good Dentition - Neurological Assessment Level of Consciousness: Awake, Follows Commands - Anesthesia Plan Anesthesia Risk discussed: Yes Anesthesia Plan: Verified ASA Class: III Anesthesia Type: General [facility] History I have reviewed the patient's past medical history: Yes Medical History: Reports:: Arrhythmia, Atrial Fibrillation, Congestive Heart Failure, Hyperlipidemia, Hypertension Denies:: Cancer, Diabetes Mellitus Type 1, Diabetes Mellitus Type 2, Internal Pacemaker, MRSA, Seizures *Have you ever received a pneumonia vaccine?: Yes *Have you received a flu vaccine this season?: Yes Other Medical History: Reports: Hypothyroidism, Sinus Problems, Thyroid Disease, Other. Denies: Blood Transfusion Reaction Anesthesia experience/problems:: nac Laterality Cases: Left: Other Other Surgeries: Yes: Appendectomy, Hysterectomy-Total. No: Pacemaker Amputation: No Fractures: No - *Social History Smoking Status: Former smoker Alcohol Intake: never Substance Use Type: denies use *Occupational Status:: retired Housing: senior care Household Members: other *Travel in the last 8 weeks: None Family Hx:: Coronary Artery Disease, Diabetes
--- NOTE | 2020-04-11 15:29 | SUR.OPER ---
Reported per Katharina RN Multiple areas of ecchymosis bilateral arms Skin tear bilateral arms and inguinal folds. Blistering to Left back down to thigh and knee Lymphedema to bilateral legs(no ipcs per ) Bilateral legs wrapped with ana lilia wrap
--- NOTE | 2020-04-11 17:43 | XR_ITS ---
PROCEDURE: XR FEMUR LT 2V CLINICAL INDICATION: LEFT GAMMA NAILING IN OR COMPARISON: No exams were available for comparison FINDINGS: Fluoroscopy time: 4 minutes and 11 seconds C-arm is utilized for gamma nail insertion and long intramedullary jose which is in good alignment. There is mild lateral displacement the distal femoral fracture fragment. IMPRESSION: Status post ORIF left femoral intertrochanteric fracture with good alignment and mild lateral displacement of the distal fracture fragment Dictated by: Kirill Washburn MD 04/11/2020 23:22 Kirill Washburn MD in OV 04/11/2020 23:22
--- NOTE | 2020-04-11 18:29 | HMH.OPNOTE ---
Date of procedure: 04/11/20 Pre-op Diagnosis:: Closed, comminuted, displaced intertrochanteric fracture, left femur Post-op Diagnosis:: Same Procedure performed:: Closed reduction and cephalomedullary nailing, left femur Surgeon:: Karan Crowell MD Inspector [employer] Container(s):: Shelley Arreola COMMERCIAL DESIGNER:: Yo Epstein, Other (Lul Rao) Anesthesia: GETA Estimated blood loss (mL): 200 Clinical Note:: Patient is a 85-year-old female who fell while going to bathroom at the retirement sustaining an injury to her left hip couple of days ago. Following evaluation in the emergency room where x-ray showed a displaced and comminuted intertrochanteric fracture of the left proximal femur, patient was admitted for further management. After evaluating the patient, I have discussed the diagnosis and management options in detail including nonsurgical and surgical, with the patient and her daughter. After a detailed discussion with the patient/her daughter a decision was made to fix the fracture internally with a cephalo-medullary nail. The surgery had to be delayed as patient is a long-term anticoagulation and her INR on admission was supratherapeutic. The INR today has come down to 1.62 and a decision was made to take her to the OR today. I have discussed the procedure, risks and benefits, postoperative recovery and rehabilitation and the expected outcomes. The complications discussed include but are not limited to DVT, PE, infection, bleeding, injury to nerves and blood vessels, screw cut-out/implant failure, loss of fixation, nonunion, malunion/malrotation, osteonecrosis of the femoral head, femoral shaft fracture, painful hardware, heterotopic ossification, stiffness, weakness, incomplete relief of pain, incomplete return of function or motion and the likely need for further surgery in future, and anesthetic/medical complications including heart attack, stroke, transfusion reaction or . The patient's daughter wished to proceed with the surgical remediation. Consent form was reviewed and signed by me. The limb was appropriately marked and initialed by me. Following appropriate preoperative workup including medical and cardiac clearance, patient is brought to the operating room for surgery. The surgery is indicated to reduce and stabilize the fracture, relieve pain and improve function. Patient's daughter understood the risks, agreed to proceed with surgery, signed the consent form and no guarantees or assurances were given or implied. Operative findings:: Comminuted, displaced and unstable intertrochanteric fracture left proximal femur as noted on the preoperative imaging. The fracture was difficult to reduce anatomically given the comminution and displacement. It is reduced to an acceptable alignment by closed manipulation and fixed in a stable fashion with a long Gamma nail. Bone quality is soft/osteoporotic. Operative note:: Following appropriate preoperative workup, medical and cardiac clearance, patient is brought to the operating room and a general anesthesia was administered by the watch inspector final movement. Patient was then positioned supine on the fracture table and all the bony prominences were appropriately padded. The left foot was secured in the footplate and the footplate was attached to the fracture table. The the right leg was placed out of the way in a leg ambrocio. Under fluoroscopic guidance the fracture reduction was attempted; the fracture could not be reduced anatomically by closed manipulation. However, the reduction was felt to be satisfactory to proceed with fixation of the nail. The reduction was confirmed on both AP and lateral views. The left hip and thigh were then prepped and draped in the usual sterile fashion. Administration of prophylactic antibiotics was confirmed with the watch inspector final movement (IV vancomycin and Ancef were administered). A preprocedure timeout was performed as per the hospital protocol. After marking the level of the greater trochanter on the skin under fluoros
--- NOTE | 2020-04-11 19:37 | PC.NURSE ---
PATIENT HR WAS IN THE 150'S. CARDIOLOGY NOTIFIED, PER MARAH BUCK OKAY FOR PATIENT TO SUSTAIN IN HIGH 100S DUE TO PATIENT HAVING SURGERY LATER THIS DAY. REPORT GIVEN BY MICHELLE PATEL, PER RN PATIENT RECEIVED VANCOMYCIN WHILE IN SURGERY. PATIENT ARRIVED BACK ON FLOOR AT 1845, PATIENT WILL NOT OPEN HER EYES BUT WILL SPEAK. PATIENT IS NOT ALERT AND ORIENTED. PATIENT SKIN IS PALE IN COLOR. LUNGS ARE DIMINISHED. DR. NARANJO AT BEDSIDE. OKAY TO REMOVE LOVELY BANDAGES FROM USP. ORDERS TO PLACE PATIENT IN SCUDS. INCENTIVE SPIROMETER AT BEDSIDE, PATIENT IS UNABLE TO COMPREHEND EDUCATION AT THIS TIME. PATIENT REFUSED TO TAKE ANY WATER FROM THIS RN, UNABLE TO ADMINISTER HER DILTIAZEM. NO OTHER CONCERNS AT THIS TIME.
[2020-04-11 19:41] LABS: INR 1.44 (0.9-1.1); Prothrombin Time 15.5 seconds (9.4-11.8)
--- NOTE | 2020-04-11 20:00 | PC.NURSE ---
PT VERY CONFUSED,CALLS OUT TELLING MARVIN TO NOT TOUCH HER,THAT IT HURTS,WHEN STAFF TRYING TO PUT B/P CUFF ON HER ARM,SAT LEVEL AT TIMES 79-100%,SWITCHED DATASCOPES.PT KEEPS TAKING OFF PULSE OX OFF HER FINGER.SCATTERED WHEEZING NOTED ALL FRONT,NO COUGH.PULSE OX PICKING UP BETTER NOW.PT HAS MULTIPLE BRUISING ON ARMS IV SITE ON RFA HAS A SKIN TEAR ON IT.PT HAS SOME FLUID FILLED BLISTERS ON HER LEFT SIDE BEHIND HER ARM,A COUPLE HAVE ALREADY BUSTED,PT REFUSING TO DRINK ANY WATER OR TAKE HER MEDICINES,WILL CONTINUE TO TRY AND GET HER TO TAKE THEM
--- NOTE | 2020-04-11 20:00 | PC.WOUNDNOTE ---
Wound Location: RIGHT WRIST Length:1.5 IN Width:.5 IN Depth: Undermining Y/N: N Tunneling cm: Granulation %: Slough/necrotic tissue %: Inflammation/swelling Y/N:N Pain and/or tenderness Y/N:Y Exudate: Sanguinous Color: Red Consistency: Thin Amount: Scant Odor Y/N:N SKIN TEAR NOTED, SCANT AMOUNT OF BLOODY DRAINAGE.
--- NOTE | 2020-04-11 20:02 | PC.WOUNDNOTE ---
Wound Location: RIGHT SIDE Length:1.5 IN Width:1 IN Depth: Undermining Y/N: Tunneling cm: Granulation %: Slough/necrotic tissue %: Inflammation/swelling Y/N:N Pain and/or tenderness Y/N:Y Exudate: Amount: None Odor Y/N:N FLUID FILLED BLISTERS POPPED.
--- NOTE | 2020-04-11 20:04 | PC.WOUNDNOTE ---
Wound Location: RIGHT LEG Length: Width: Depth: Undermining Y/N: Tunneling cm: Granulation %: Slough/necrotic tissue %: Inflammation/swelling Y/N:Y Pain and/or tenderness Y/N:Y Exudate: Serosanguinous Sanguinous Serosanguinous Seropurulent Purulent Color: Clear [place] Cloudy/milky [place] Red Green Yellow [place] Blue Consistency: Thick Thin Amount: None Scant Small Moderate Large Odor Y/N:N SKIN FROM REMOVAL OF LOVELY BANDAGES
--- NOTE | 2020-04-11 20:05 | PC.WOUNDNOTE ---
Wound Location: LEFT LEG Length: Width: Depth: Undermining Y/N: Tunneling cm: Granulation %: Slough/necrotic tissue %: Inflammation/swelling Y/N:Y Pain and/or tenderness Y/N:Y Amount: None Odor Y/N:N SKIN FROM REMOVAL OF LOVELY BANDAGES
--- NOTE | 2020-04-11 20:05 | PC.WOUNDNOTE ---
Wound Location: RIGHT INNER ANKLE Length:1 IN Width:1 IN Depth: Undermining Y/N: Tunneling cm: Granulation %: Slough/necrotic tissue %: Inflammation/swelling Y/N:Y Pain and/or tenderness Y/N:Y Amount: None Odor Y/N:N SKIN FROM REMOVAL OF LOVELY BANDAGES
--- NOTE | 2020-04-11 20:37 | HMH.ACPN2 ---
Internal Medicine - PN: Subj *Date: 04/11/20 *Time: 20:45 Interval history: Patient seen briefly this morning but examined more thoroughly this afternoon. Reviewed labs from this morning, improved INR. Taken to surgery for fixation of left hip fracture. Reviewed vitals, heart rate has been better controlled on current diltiazem regimen. Blood pressure stable. Afebrile. N.p.o. this morning for potential surgery. Exam Vital signs and Labs for Last 24 Hours: Temp Pulse Resp BP Pulse Ox 98.5 F 98 H 22 120/75 95 04/11/20 19:00 04/11/20 19:30 04/11/20 19:30 04/11/20 19:30 04/11/20 19:30 Laboratory Results - last 24 hr 04/10/20 10:00: Urine Color Yellow, Urine Appearance Clear, Urine pH 5.5, Ur Specific [place] 1.020, Urine Protein Negative, Urine Glucose (UA) Negative, Urine Ketones 1+, Urine Blood 2+, Urine Nitrate Positive, Urine Bilirubin Negative, Urine Urobilinogen 0.2, Ur Leukocyte Esterase Trace, Urine RBC 3-5, Urine WBC 3-5, Ur Squamous Epith Cells Occasional, Urine Bacteria 1+, Urine Yeast Occasional 04/11/20 06:02: WBC 12.0 H, RBC 3.46 L, Hgb 10.4 L, Hct 32.3 L, MCV 93.3, MCH 29.9, MCHC 32.1, RDW 13.1, Plt Count 257, MPV 7.8, Neut % (Auto) 82.6 H, Lymph % (Auto) 10.0, [place] % (Auto) 5.9, Eos % (Auto) 1.1, Baso % (Auto) 0.4, Neut # (Auto) 9.9 H, Lymph # (Auto) 1.2, [place] # (Auto) 0.7, Eos # (Auto) 0.1, Baso # (Auto) 0.1 04/11/20 06:02: PT 18.2 H, INR 1.72 H 04/11/20 06:02: Sodium 137, Potassium 4.4, Chloride 105, Carbon Dioxide 27, Anion Gap 9.4, BUN 16 D, Creatinine 0.90, Estimated Creat Clear 55, Estimated GFR 60, Est GFR ( Amer) 72 D, Glucose 115 H, Calcium 9.0, Total Bilirubin 0.8, AST 37 H, ALT 21, Alkaline Phosphatase 74, Total Protein 6.5, Albumin 3.2 L, Globulin 3.3 H, Albumin/Globulin Ratio 1.0 L 04/11/20 11:10: PT 17.2 H, INR 1.62 H 04/11/20 19:18: PT 15.5 H, INR 1.44 H I & O for Last 24 hours: Intake & Output 04/08/20 04/09/20 04/10/20 04/11/20 23:59 23:59 23:59 23:59 Intake Total 1000 / 1000 840 / 840 1018 / 1018 698 / 698 Output Total 950 / 950 1150 / 1150 450 / 450 Balance 1000 / 1000 -110 / -110 -132 / -132 248 / 248 Weight 77.111 kg 82 kg 83.574 kg 83.971 kg Microbiology Reports for the Last 24 Hours: Microbiology 04/10/20 10:00 Urine,Catheterized Urine Culture - Preliminary Gram Negative Rods - Constitutional mild distress, obese, somnolent (Still awaking from anesthesia) - *Routine HEENT Exam Head: Present: normocephalic Eye: Present: PERRL ENT: Present: mucous membranes moist - *Routine Neck Exam Present: supple. Absent: lymphadenopathy - *Routine Respiratory Exam Present: CTA bilaterally. Absent: wheezes, crackles - *Routine Cardiovascular Exam Present: irregularly irregular - *Routine Abdominal Exam Present: soft, normoactive bowel sounds. Absent: tenderness - *Routine Extremities Exam Present: edema (2+ to knees). Absent: cyanosis, clubbing Comments: left LE with CDI surgical bandage overlying lateral thigh - *Routine Skin Exam Present: warm. Absent: rash - *Routine Neurological Exam still awaking from anesthesia, no focal deficits appreciated. Assessment and Plan (1) Chronic atrial fibrillation Status: Acute Category: Medical Code(s): I48.20 - Chronic atrial fibrillation, unspecified (2) Hip fracture Status: Acute Qualifiers: Encounter type: initial encounter Fracture type: closed Laterality: left Qualified Code(s): S72.002A - Fracture of unspecified part of neck of left femur, initial encounter for closed fracture Category: Medical Code(s): S72.009A - Fracture of unspecified part of neck of unspecified femur, initial encounter for closed fracture (3) Obesity (BMI 30.0-34.9) Status: Chronic Category: Medical Code(s): E66.9 - Obesity, unspecified complicates all aspects of care. (4) Prolonged INR Status: Acute Category: Medical Code(s): R79.1 - Abnormal
--- NOTE | 2020-04-11 23:15 | PC.NURSE ---
PT STILL CONFUSED AND ASKING WHERE SUSY IS,TOLD HER I DID NOT KNOW.PT FINALLY TOOK SOME OF HER MEDICINE WITH SOME VANILLA PUDDING,SHE WAS RELECTENT AND SHE SHE WAS CHEWING THEM UP,TOLD HER THAT THE ONE WAS A CAPSULE AND TO NOT CHEW IT,PT HAS A TEMP OF 99.2 AX AND HAD HER TAKE SOME TYLENOL IN PUDDING TOO.PT FINALLY SAID THAT WAS ENOUGH AND CLAPPED HER MOUTH TOGETHER.SHE DID TAKE HER SPIRONOLACTONE ,WHEEZING NOTED THROUGHTOUT AND RESP 24 AND LABORED.ENCOURAGED INCENTIVE AND PT REFUSED TO USE IT,SAID GET THAT OUT OF HER MOUTH.WILL CONTINUE TO MONITOR
[2020-04-12] VITALS (7 sets, daily range): BP systolic 82–141; BP diastolic 47–70; PULSE 55–99; RESP 19–20; TEMP 36.8–37.2; O2SAT 93–100; BMI 34.8
--- NOTE | 2020-04-12 00:30 | PC.NURSE ---
PT SLEEPING SOUNDLY IN BED.RESP.EVEN AND UNLABORED,SAT LEVEL 99% ON 2 LITERS OF OXYGEN,TEMP BETTER 98.8 AX.WILL CONTINUE TO MONITOR
--- NOTE | 2020-04-12 00:32 | PC.NURSE ---
PT RESTING MORE COMFORTABLY AND RESP ARE EVEN AND UNLABORED NOW.PT SLEEPING SOUNDLY SAT LEVEL 100% ON 2 LITER OF 02.WILL CHECK HER TEMP HERE IN A BIT.
--- NOTE | 2020-04-12 03:44 | PC.NURSE ---
ASSISTED WITH PT BATH THIS MORNING,SHE HAS MULTIPLE BLISTERS ON HER LEFT SIDE,SOME HAS BUSTED,YEAST NOTED IN FOLDS AND SOME NYASTIN POWDER APPLIED,CATH CARE DONE,VAG.AREA WITH SOME REDDNESS NOTED.LEFT HIP DRESSING INTACT AND CLEAN AND DRY.LUNGS WITH AUDIBLE AND ASCULTATED WHEEZING,2+PITTING EDEMA NOTED IN PEDAL AREA BILATERALLY,SCUDS ON RIGHT LEG.V/S STABLE,WILL CONTINUE TO MONITOR
--- NOTE | 2020-04-12 04:55 | PC.NURSE ---
UPON ENTERING ROOM PT HAD HER GOWN OFF AND SAYING SHE WANTED TO GET UP,SHE HAD TO PEE,TOLD HER SHE HAD A JERONIMO IN AND THAT WAS EMPTYING HER BLADDER,SHE WAS PULLING AT HER SCUDS AND WANTING IT OFF HER RIGHT LEG,REMOVED IT,SHE WANTED HER OXYGEN OFF WHILE IN ROOM TOOK OXYGEN OFF FOR 15 MINS AND CHECKED HER SAT LEVEL AND IT WAS 89% ON RA,REAPPLIED OXYGEN AT 2 LITERS PER NC.SET BED ALARM AND TURNED ON PT T.V FOR HER.WILL CONTINUE TO MONITOR
--- NOTE | 2020-04-12 05:17 | PC.NURSE ---
PT FINALLY TOOK HER CARDIZEM 30MG PO TAB AND YELLING AND SAYING SHE WAS NOT GOING TO STAND FOR ME TRYING TO PUT IT DOWN HER THROAT,TOLD HER I WAS NOT GOING TO FORCE HER TO TAKE IT,BUT IT WAS HER HEART PILL AND SHE REALLY NEEDED TO TAKE IT.PT CONFUSED AND VERY HOSTILE AT TIMES.
[2020-04-12 06:53] LABS: Basophils # 0.1 K/mm3 (0-0.2); Basophils % 0.4 % (0.1-2.0); Eosinophils # 0.2 K/mm3 (0.0-0.4); Eosinophils % 1.1 % (0.1-12.0); Hematocrit 26.3 % (37.0-47.0); Hemoglobin 8.5 g/dL (12.2-16.2); Lymphocytes # 1.1 K/mm3 (0.7-4.5); Mean Corpuscular HGB Conc 32.4 g/dL (31.8-35.4); Mean Corpuscular Hemoglobin 30.3 pg (27.0-31.2); Mean Corpuscular Volume 93.4 fl (81-99); Monocytes # 0.9 K/mm3 (0.1-1.0); Monocytes % 6.4 % (1.7-9.3); Neutrophils # 11.3 K/mm3 (1.8-7.8); Neutrophils % 84.1 % (37.0-80.0); Platelet Count 245 K/mm3 (142-424); Red Blood Count 2.82 M/mm3 (4.20-5.40); Red Cell Distribution Width 13.4 % (11.5-17.5); White Blood Count 13.4 K/mm3 (4.8-10.8)
[2020-04-12 06:58] LABS: Chloride 106 mmol/L (98-107); Potassium 4.1 mmoL/L (3.5-5.1); Sodium 137 mmol/L (136-145)
[2020-04-12 07:01] LABS: Alanine Aminotransferase 19 U/L (12-78); Albumin Level 2.7 g/dl (3.5-5.0); Albumin/Globulin Ratio 0.9 (1.1-1.8); Alkaline Phosphatase 65 U/L (38-126); Anion Gap 8.1 mEq/L (5-15); Aspartate Amino Transferase 34 U/L (14-36); Bilirubin,Total 0.7 mg/dl (0.2-1.3); Blood Urea Nitrogen 16 mg/dl (7-17); Calcium 8.3 mg/dl (8.4-10.2); Carbon Dioxide 27 mmol/L (22.0-30.0); Creatinine Clearance Estimated 56 mL/min (50-200); Estimated Glomerular Filt Rate 68 ml/min (>60); GFR (African American) 82 ML/MIN (>60); Globulin 2.9 g/dL (1.3-3.2); Glucose 136 mg/dl (74-100); Total Protein,Serum 5.6 g/dl (6.3-8.2)
[2020-04-12 07:04] LABS: INR 1.54 (0.9-1.1); Prothrombin Time 16.4 seconds (9.4-11.8)
--- NOTE | 2020-04-12 08:56 | HMH.ACPN2 ---
Internal Medicine - PN: Subj *Date: 04/12/20 *Time: 08:56 Interval history: Patient did well overnight in regards to atrial fibrillation with good rate control. Remains on Lovenox postoperatively. Left hip ORIF went well yesterday. Appreciate orthopedic involvement and procedure accomplishment. Exam Vital signs and Labs for Last 24 Hours: Temp Pulse Resp BP Pulse Ox 98.3 F 85 19 119/70 93 L 04/12/20 08:00 04/12/20 08:00 04/12/20 08:00 04/12/20 08:00 04/12/20 08:00 Laboratory Results - last 24 hr 04/11/20 11:10: PT 17.2 H, INR 1.62 H 04/11/20 19:18: PT 15.5 H, INR 1.44 H 04/12/20 06:30: WBC 13.4 H, RBC 2.82 L, Hgb 8.5 L, Hct 26.3 L, MCV 93.4, MCH 30.3, MCHC 32.4, RDW 13.4, Plt Count 245, MPV 8.0, Neut % (Auto) 84.1 H, Lymph % (Auto) 8.0 L, [place] % (Auto) 6.4, Eos % (Auto) 1.1, Baso % (Auto) 0.4, Neut # (Auto) 11.3 H, Lymph # (Auto) 1.1, [place] # (Auto) 0.9, Eos # (Auto) 0.2, Baso # (Auto) 0.1 04/12/20 06:30: Sodium 137, Potassium 4.1, Chloride 106, Carbon Dioxide 27, Anion Gap 8.1, BUN 16, Creatinine 0.80, Estimated Creat Clear 56, Estimated GFR 68, Est GFR ( Amer) 82, Glucose 136 H, Calcium 8.3 L, Total Bilirubin 0.7, AST 34, ALT 19, Alkaline Phosphatase 65, Total Protein 5.6 L, Albumin 2.7 L D, Globulin 2.9, Albumin/Globulin Ratio 0.9 L 04/12/20 06:30: PT 16.4 H, INR 1.54 H I & O for Last 24 hours: Intake & Output 04/09/20 04/10/20 04/11/20 04/12/20 11:59 11:59 11:59 11:59 Intake Total 1240 / 1240 720 / 720 1596 / 1596 746 / 746 Output Total 1450 / 1450 1100 / 1100 625 / 625 Balance 1240 / 1240 -730 / -730 496 / 496 121 / 121 Weight 182 lb 184 lb 4 oz 185 lb 2 oz 189 lb 6 oz Microbiology Reports for the Last 24 Hours: Microbiology 04/10/20 10:00 Urine,Catheterized Urine Culture - Final Escherichia coli Narrative: Patient is sleeping. When awakened is responsive. Lungs have good air movement, minimal rhonchi in the bases. Heart rate irregular but good rate control. Abdomen soft. Left hip dressing site dry and clean and intact. Good distal pulses. No neurologic focal signs. Assessment and Plan (1) Chronic atrial fibrillation Status: Acute Category: Medical Code(s): I48.20 - Chronic atrial fibrillation, unspecified (2) Hip fracture Status: Acute Qualifiers: Encounter type: initial encounter Fracture type: closed Laterality: left Qualified Code(s): S72.002A - Fracture of unspecified part of neck of left femur, initial encounter for closed fracture Category: Medical Code(s): S72.009A - Fracture of unspecified part of neck of unspecified femur, initial encounter for closed fracture (3) Obesity (BMI 30.0-34.9) Status: Chronic Category: Medical Code(s): E66.9 - Obesity, unspecified (4) Prolonged INR Status: Acute Category: Medical Code(s): R79.1 - Abnormal coagulation profile (5) ELROY (acute kidney injury) Status: Acute Category: Medical Code(s): N17.9 - Acute kidney failure, unspecified (6) UTI (urinary tract infection) Status: Resolved Qualifiers: Urinary tract infection type: acute cystitis Category: Medical Code(s): N39.0 - Urinary tract infection, site not specified - Assessment and plan all Dx Assessment and Plan for all problems:: 1. Status post ORIF left hip. Doing well. Physical therapy as noted. We will plan to return to her extended care facility but on the skilled side instead of the personal care side where she was residing. 2. Atrial fibrillation-under good control with immediate release Cardizem dosing. Given her marginal blood pressures we will continue with immediate release dosing to avoid hypotension. On transition back to skilled care will go to twice daily or daily dosing depending on blood pressure issues. 3. Anticoagulation-continue Lovenox-resume warfarin or other anticoagulation at that time however we may need to discuss with her daughter the ris
--- NOTE | 2020-04-12 12:48 | HMH.ORTHPN ---
Subjective Date: 04/12/20 Time: 11:30 Principal diagnosis: Intertrochanteric fracture, left femur and Atrial fib Interval history: The patient is doing well this morning, no acute events reported overnight. She does not report pain in the left hip, but does report pain on the left side of her chest; she says her ribs hurt. She is on supplemental oxygen via nasal cannula and is audibly wheezing, but this is reported to be her baseline. She denies any dyspnea or chest pain. Steven catheter remains in place. She has not been out of bed yet with therapy since surgery. PN: Obj Ex Vital signs: Temp Pulse Resp BP Pulse Ox 98.3 F 85 19 119/70 93 L 04/12/20 08:00 04/12/20 08:00 04/12/20 08:00 04/12/20 08:00 04/12/20 08:00 - Constitutional no acute distress - Routine HEENT Exam Head: Present: normocephalic Eye: Present: EOMI ENT: Present: mucous membranes moist - Routine Neck Exam Present: trachea midline - Routine Respiratory Exam Present: wheezes. Absent: respiratory distress - Routine Cardiovascular Exam Present: RRR - Routine Abdominal Exam Present: soft. Absent: tenderness - Routine Exam Comments: steven in place - Routine Extremities Exam Comments: L hip dressing c/d/i +DF/PF/EHL LLE SILT distally LLE in all distributions palpable pedal pulses LLE, foot pink/warm L calf soft, non-tender; negative Abel's - Routine Skin Exam Present: warm - Routine Neurological Exam Present: alert, moving all extremities. Absent: sensory deficit, motor deficit - Urinary Catheter Management Steven Cath placed during this visit: no Progress Note: A&P (1) Chronic atrial fibrillation Status: Acute (2) Hip fracture Status: Acute (3) Obesity (BMI 30.0-34.9) Status: Chronic (4) Prolonged INR Status: Acute (5) ELROY (acute kidney injury) Status: Acute (6) UTI (urinary tract infection) Status: Resolved Assessment and Plan for All Diagnoses:: 85yo F POD 1 s/p IMN L femur -- PT/OT to eval, WBAT LLE -- lovenox for DVT prophy -- continue current pain medication regimen -- encourage IS 10x/hr -- continue treatment per PCP for UTI -- recommend removal of Stveen as soon as feasible unless needed for medical reasons -- Hgb 8.5 today; anticipate further drop by tomorrow, recommend transfusion if Hgb <8 -- dispo planning: back to SNF once medically appropriate and bed arranged, anticipate Tuesday.
--- NOTE | 2020-04-12 13:32 | HMH.PTEV ---
Physical Therapy Evaluation Rehab PT IP Evaluation Start: 04/11/20 18:49 Freq: ONCE Status: Active Protocol: Document 04/12/20 12:58 HILARY (Rec: 04/12/20 13:30 HILARY [id number]) Subjective/History History History PT ADMITTED TO [facility] W/FX L HIP (INTERTROCHANTERIC) W/ORIF SX. ON 04/11/20, PT FELL ON 04/08/20 . Subjective Subjective PT RPEORTS SEVERE L HIP PAIN THIS PM. Rehab PT IP Eval Objective Appearance Patient Behavior Cooperative,Passive Patient Orientation Person Difficulty following instructions moderate Speech Pattern Delayed,Mumbled Ambulation Patient Able to Ambulate Yes Ambulation Observation IP General Gait Pattern Observation Shuffling Step,Hips Posterior to HENRY,Decrease Weight Bear (L ) Ambulation Distance (feet) 2 Ambulation Assistive Device Standard Walker,Rolling Walker Ambulation Ability Maximum x 2 (75% assist) Balance Ability to Arise Unable Sitting Balance Leans or slides in chair Standing Balance Unsteady Dynamic Sitting Balance Ability Fair Dynamic Standing Balance Ability Poor Transfers Bed Transfer Ability Maximum x 1 (75% assist) Sit to Stand Bed Transfer Ability Maximum x 2 (75% assist) ROM RUE PT ROM Status WFL RLE PT ROM Status WFL LUE PT ROM Status WFL LLE PT ROM Status ABN Abnormal ROM Comment LIMITED D/T PAIN MMT RUE PT MMT WFL RLE PT MMT WFL LUE PT MMT WFL LLE PT MMT ABN Abnormal MMT Grade LIMITED D/T PAIN Rehab PT IP prob,goals,plan Problems Date of Evaluation: 04/12/20 PT IP Problems Bed Mobility,Transfers,Gait, Balance,Self care,Safety Rehab Potential Rehab Potential Fair Equipment Needs Assistive Devices Rolling / Wheeled Walker Plan PT Intervention Plan Bed Mobility,Transfers,Gait, Balance,Self care,Safety, Therapeutic Exercise PT Plan Frequency BID Duration LOS Discharge Goals Bed Transfer Ability Moderate x 1 (50% assist) Sit to Stand Chair Transfer Ability Moderate x 1 (50% assist) Ambulation Assistive Device Rolling Walker Ambulation Distance (feet) 10 Discharge Plan PT Discharge Plan PT TO T/F TO REHAB OR LTC
--- NOTE | 2020-04-12 17:27 | PC.NURSE ---
since obtaining care of patient she has done okay. has mostly been resting. requires total assistance. noted to bee wheezy and breathing treatment administered. noted swelling in legs especially surgical leg. some scattered blisters noted. not wanting to eat because its nasty . keeps stating it happened again. vitals are stable. swallowed pills well. steven draining dark urine incontinent of bowels.
[2020-04-13] VITALS (14 sets, daily range): BP systolic 95–113; BP diastolic 54–78; PULSE 57–90; RESP 19–24; TEMP 36.4–37.2; O2SAT 96–100; BMI 35.5
--- NOTE | 2020-04-13 04:46 | PC.NURSE ---
pt is confused mostly. able to tell me her name and . she did know that trump was on trial and requested that the news be put on. tv was set to the news at that time. edema to left leg is greater than right. dressing in place to left hip. during rounds when pt was turned pt stated i dont like when you do that asked patient if she was in pain. pt states it hurts to lay flat. iv patent and infusing per order. steven in place and draining clear yellow urine. call light in reach. vss. will continue to monitor
--- NOTE | 2020-04-13 05:58 | PC.WOUNDNOTE ---
Wound Location: lateral to back of mid calf. splitting open Length: Width: Depth: Undermining Y/N: Tunneling cm: Granulation %: Slough/necrotic tissue %: Inflammation/swelling Y/N: Pain and/or tenderness Y/N: Exudate: Serosanguinous Sanguinous Serosanguinous Seropurulent Purulent Color: Clear [place] Cloudy/milky [place] Red Green Yellow [place] Blue Consistency: Thick Thin Amount: None Scant Small Moderate Large Odor Y/N:
--- NOTE | 2020-04-13 06:01 | PC.WOUNDNOTE ---
Wound Location: bilateral heels Length: Width: Depth: Undermining Y/N: Tunneling cm: Granulation %: Slough/necrotic tissue %: Inflammation/swelling Y/N: Pain and/or tenderness Y/N: Exudate: Serosanguinous Sanguinous Serosanguinous Seropurulent Purulent Color: Clear [place] Cloudy/milky [place] Red Green Yellow [place] Blue Consistency: Thick Thin Amount: None Scant Small Moderate Large Odor Y/N:
--- NOTE | 2020-04-13 06:02 | PC.NURSE ---
bilateral heel protectors placed and heels floated. skin assessment has water blisters on LLE and down left side. abd folds are red and splitting. under breast red and yeast noted. multiple bulla filled with sanginous fluid left lateral calf bullae broken open. skin tear to left forearm. skin tear to knee. multiple large bruise on back and around left leg. scattered bruises. fragile loose skin with discoloration.
[2020-04-13 06:46] LABS: Basophils # 0.1 K/mm3 (0-0.2); Basophils % 0.6 % (0.1-2.0); Eosinophils # 0.2 K/mm3 (0.0-0.4); Lymphocytes # 1.3 K/mm3 (0.7-4.5); Mean Corpuscular HGB Conc 31.5 g/dL (31.8-35.4); Mean Corpuscular Hemoglobin 29.4 pg (27.0-31.2); Mean Corpuscular Volume 93.2 fl (81-99); Mean Platelet Volume 7.9 fl (7.4-10.4); Monocytes # 0.9 K/mm3 (0.1-1.0); Neutrophils # 9.7 K/mm3 (1.8-7.8); Neutrophils % 79.4 % (37.0-80.0); Platelet Count 262 K/mm3 (142-424); Red Blood Count 2.73 M/mm3 (4.20-5.40); Red Cell Distribution Width 13.7 % (11.5-17.5); White Blood Count 12.2 K/mm3 (4.8-10.8)
[2020-04-13 06:48] LABS: Hematocrit 25.4 % (37.0-47.0)
[2020-04-13 06:53] LABS: Anion Gap 6.1 mEq/L (5-15); Blood Urea Nitrogen 15 mg/dl (7-17); Calcium 8.6 mg/dl (8.4-10.2); Carbon Dioxide 28 mmol/L (22.0-30.0); Chloride 106 mmol/L (98-107); Creatinine Clearance Estimated 57 mL/min (50-200); Estimated Glomerular Filt Rate 60 ml/min (>60); GFR (African American) 72 ML/MIN (>60); Glucose 121 mg/dl (74-100); Potassium 4.1 mmoL/L (3.5-5.1); Sodium 136 mmol/L (136-145)
--- NOTE | 2020-04-13 08:51 | HMH.ACPN2 ---
Internal Medicine - PN: Subj *Date: 04/13/20 *Time: 08:51 Interval history: Patient did well overnight, duo nebs were started yesterday for wheezing, this really seems to be more of a rhonchorous sounds but regardless she is better this morning. Hemoglobin at 8.0 g even. Patient is much more alert. No fevers. Exam Vital signs and Labs for Last 24 Hours: Temp Pulse Resp BP Pulse Ox 97.8 F 84 19 104/64 L 97 04/13/20 07:56 04/13/20 07:56 04/13/20 07:56 04/13/20 07:56 04/13/20 07:56 Laboratory Results - last 24 hr 04/13/20 06:35: WBC 12.2 H, RBC 2.73 L, Hgb 8.0 L, Hct 25.4 L, MCV 93.2, MCH 29.4, MCHC 31.5 L, RDW 13.7, Plt Count 262, MPV 7.9, Neut % (Auto) 79.4, Lymph % (Auto) 11.0, [place] % (Auto) 7.0, Eos % (Auto) 2.0, Baso % (Auto) 0.6, Neut # (Auto) 9.7 H, Lymph # (Auto) 1.3, [place] # (Auto) 0.9, Eos # (Auto) 0.2, Baso # (Auto) 0.1 04/13/20 06:35: Sodium 136, Potassium 4.1, Chloride 106, Carbon Dioxide 28, Anion Gap 6.1, BUN 15, Creatinine 0.90, Estimated Creat Clear 57, Estimated GFR 60, Est GFR ( Amer) 72, Glucose 121 H, Calcium 8.6 I & O for Last 24 hours: Intake & Output 04/10/20 04/11/20 04/12/20 04/13/20 11:59 11:59 11:59 11:59 Intake Total 720 / 720 1596 / 1596 746 / 746 1434 / 1434 Output Total 1450 / 1450 1100 / 1100 625 / 625 325 / 325 Balance -730 / -730 496 / 496 121 / 121 1109 / 1109 Weight 184 lb 4 oz 185 lb 2 oz 189 lb 6 oz 193 lb 3 oz Microbiology Reports for the Last 24 Hours: Microbiology 04/10/20 10:00 Urine,Catheterized Urine Culture - Final Escherichia coli Narrative: Alert, pleasant. A little bit more talkative. Lungs have good air movement, minimal rhonchi in the bases. Heart rate irregular at baseline, good rate control. Abdomen soft. Nontender. No perfusion deficits in the extremities. Able to move all extremities spontaneously. Pain seems well controlled on current regimen. Assessment and Plan (1) Chronic atrial fibrillation Status: Acute Category: Medical Code(s): I48.20 - Chronic atrial fibrillation, unspecified (2) Hip fracture Status: Acute Qualifiers: Encounter type: initial encounter Fracture type: closed Laterality: left Qualified Code(s): S72.002A - Fracture of unspecified part of neck of left femur, initial encounter for closed fracture Category: Medical Code(s): S72.009A - Fracture of unspecified part of neck of unspecified femur, initial encounter for closed fracture (3) Obesity (BMI 30.0-34.9) Status: Chronic Category: Medical Code(s): E66.9 - Obesity, unspecified (4) Prolonged INR Status: Acute Category: Medical Code(s): R79.1 - Abnormal coagulation profile (5) ELROY (acute kidney injury) Status: Acute Category: Medical Code(s): N17.9 - Acute kidney failure, unspecified (6) UTI (urinary tract infection) Status: Resolved Qualifiers: Urinary tract infection type: acute cystitis Category: Medical Code(s): N39.0 - Urinary tract infection, site not specified - Assessment and plan all Dx Assessment and Plan for all problems:: 1. Status post hip fracture and ORIF, doing well, management per orthopedics. Anticipate transfer to skilled care facility tomorrow. 2. UTI-present on admission-transition to oral Augmentin on transfer to care home. 3. Atrial fibrillation-good rate control-prophylactic Lovenox at this point. Decision will need to be made about continuing aggressive oral anticoagulation given her risks of falls and risk benefit ratio of ongoing anticoagulation. 4. Acute kidney [id number] back to baseline.
--- NOTE | 2020-04-13 09:22 | HMH.ACPN ---
Internal Medicine - PN: Subj *Date: 04/13/20 *Time: 09:22 Exam Vital signs and Labs for Last 24 Hours: Temp Pulse Resp BP Pulse Ox 97.8 F 84 19 104/64 L 97 04/13/20 07:56 04/13/20 07:56 04/13/20 07:56 04/13/20 07:56 04/13/20 07:56 Laboratory Results - last 24 hr 04/13/20 06:35: WBC 12.2 H, RBC 2.73 L, Hgb 8.0 L, Hct 25.4 L, MCV 93.2, MCH 29.4, MCHC 31.5 L, RDW 13.7, Plt Count 262, MPV 7.9, Neut % (Auto) 79.4, Lymph % (Auto) 11.0, [place] % (Auto) 7.0, Eos % (Auto) 2.0, Baso % (Auto) 0.6, Neut # (Auto) 9.7 H, Lymph # (Auto) 1.3, [place] # (Auto) 0.9, Eos # (Auto) 0.2, Baso # (Auto) 0.1 04/13/20 06:35: Sodium 136, Potassium 4.1, Chloride 106, Carbon Dioxide 28, Anion Gap 6.1, BUN 15, Creatinine 0.90, Estimated Creat Clear 57, Estimated GFR 60, Est GFR ( Amer) 72, Glucose 121 H, Calcium 8.6 I & O for Last 24 hours: Intake & Output 04/10/20 04/11/20 04/12/20 04/13/20 23:59 23:59 23:59 23:59 Intake Total 1018 / 1018 698 / 698 866 / 866 1314 / 1314 Output Total 1150 / 1150 850 / 850 225 / 225 325 / 325 Balance -132 / -132 -152 / -152 641 / 641 989 / 989 Weight 83.574 kg 83.971 kg 85.899 kg 87.628 kg Microbiology Reports for the Last 24 Hours: Microbiology 04/10/20 10:00 Urine,Catheterized Urine Culture - Final Escherichia coli Assessment and Plan (1) Chronic atrial fibrillation Status: Acute Category: Medical Code(s): I48.20 - Chronic atrial fibrillation, unspecified (2) Hip fracture Status: Acute Qualifiers: Encounter type: initial encounter Fracture type: closed Laterality: left Qualified Code(s): S72.002A - Fracture of unspecified part of neck of left femur, initial encounter for closed fracture Category: Medical Code(s): S72.009A - Fracture of unspecified part of neck of unspecified femur, initial encounter for closed fracture (3) Obesity (BMI 30.0-34.9) Status: Chronic Category: Medical Code(s): E66.9 - Obesity, unspecified (4) Prolonged INR Status: Acute Category: Medical Code(s): R79.1 - Abnormal coagulation profile (5) ELROY (acute kidney injury) Status: Acute Category: Medical Code(s): N17.9 - Acute kidney failure, unspecified (6) UTI (urinary tract infection) Status: Resolved Qualifiers: Urinary tract infection type: acute cystitis Category: Medical Code(s): N39.0 - Urinary tract infection, site not specified The patient's infection will respond to the chosen ABx?: Yes Is the patient receiving the right drug, dose, and route?: Yes Could a more targeted ABx be ordered?: No
[2020-04-13 10:12] LABS: INR 1.35 (0.9-1.1); Prothrombin Time 14.6 seconds (9.4-11.8)
--- NOTE | 2020-04-13 11:37 | HMH.ORTHPN ---
Subjective Date: 04/13/20 Time: 10:00 Principal diagnosis: Intertrochanteric fracture, left femur and Atrial fib Interval history: The patient is looking better this morning, mental status has improved. She is still somewhat confused and hard of hearing, but her daughter says she has been more oriented today. She has been able to participate with therapy but is unable to walk. She does not walk at baseline, but we are working with PT on transfers. Transfusion is planned today by primary care. PN: Obj Ex Vital signs: Temp Pulse Resp BP Pulse Ox 98.4 F 82 22 100/55 L 99 04/13/20 11:35 04/13/20 11:35 04/13/20 11:35 04/13/20 11:35 04/13/20 11:35 - Constitutional no acute distress - Routine HEENT Exam Head: Present: normocephalic Eye: Present: EOMI ENT: Present: mucous membranes moist - Routine Neck Exam Present: trachea midline - Routine Respiratory Exam Present: wheezes. Absent: respiratory distress - Routine Cardiovascular Exam Present: RRR - Routine Abdominal Exam Present: soft. Absent: tenderness - Routine Extremities Exam Comments: L hip dressing c/d/i +DF/PF/EHL LLE SILT distally LLE in all distributions palpable pedal pulses LLE, foot pink/warm L calf soft, non-tender; negative Abel's - Routine Skin Exam Present: warm - Routine Neurological Exam Present: alert, moving all extremities, normal tone. Absent: sensory deficit, motor deficit - Urinary Catheter Management Camejo Cath placed during this visit: no Progress Note: A&P (1) Chronic atrial fibrillation Status: Acute (2) Hip fracture Status: Acute (3) Obesity (BMI 30.0-34.9) Status: Chronic (4) Prolonged INR Status: Acute (5) ELROY (acute kidney injury) Status: Acute (6) UTI (urinary tract infection) Status: Resolved Assessment and Plan for All Diagnoses:: 85yo F POD 2 s/p IMN L femur -- continue PT/OT, WBAT LLE -- lovenox for DVT prophy -- continue current pain medication regimen -- encourage IS 10x/hr -- continue treatment per PCP for UTI -- transfusion planned by PDP -- dispo planning: back to SNF once medically appropriate and bed arranged, anticipate Tuesday.
[2020-04-13 17:32] LABS: Hematocrit 29.9 % (37.0-47.0)
[2020-04-13 17:33] LABS: Hemoglobin 9.7 g/dL (12.2-16.2)
--- NOTE | 2020-04-13 20:26 | PC.NURSE ---
Pt alert to person, time and situation but thinks she is at [facility]. Did get x 1 unit of blood this shift and h&h has went up. Did notify Dr. Xie and request x 1 dose of IV lasix and he ordered 40 mg IV x 1. Pt did respond well and is less wheezy. Has been up to chair this shift and steven removed. VSS.
[2020-04-14] VITALS (8 sets, daily range): BP systolic 111–117; BP diastolic 70–76; PULSE 85–94; RESP 20–26; TEMP 36.3–37.1; O2SAT 94–99; BMI 35.3
--- NOTE | 2020-04-14 05:09 | PC.NURSE ---
pt reported pain and prn med was given. pt has voided since removal of steven. iv patent. lungs are diminish, audible wheezes, and crackles. on last assessment pt appears more labored in breathing. 2LNC in use. pt skin is fragile with multiple issues. bath was given at approximately 0530 07/11 and related to pt fragile skin and multiple skin issues bath was not given this morning. redness to bilateral legs has increased to right below knees. heels are being floated. edema has not improved. pt did not resist with turns tonight. call light in reach. vss. will continue to monitor.
--- NOTE | 2020-04-14 05:54 | PC.NURSE ---
have attempted IS with patient several times and pt is unable to perform.
--- NOTE | 2020-04-14 08:25 | XR_ITS ---
PROCEDURE: XR CHEST PORTABLE CLINICAL HISTORY: f/u icu exam COMPARISON: CR XR CHEST PORTABLE from 04/08/2020 FINDINGS: There is a large body habitus. Patient is markedly rotated on the study which reduces visualization and diagnostic accuracy. The left hemidiaphragm is not visible due to rotation. There is chronic blunting of the left costophrenic angle unchanged. Left upper lung and mid lung is clear. Retrocardiac density cannot be excluded. Right apex indeterminate. No definite right lower lung atelectasis. There is pulmonary vascular congestion. There are low lung volumes. There is cardiomegaly. There is moderate approximately 30 degrees scoliotic curvature of the thoracic spine. IMPRESSION: Markedly limited exam due to large body habitus, portable technique and positioning. Findings as described above. Dictated by: Carolina Valadez MD 04/14/2020 16:33 Carolina Valadez MD in [place] 04/14/2020 16:33
--- NOTE | 2020-04-14 08:26 | HMH.ACPN2 ---
Internal Medicine - PN: Subj *Date: 04/14/20 *Time: 08:26 Interval history: Patient was alert and pleasant yesterday. Unfortunately through the day and evening last night she has had some increasing problems with breathing and has become a little short of air, responsive to nebs, we gave Lasix last night after her blood transfusion but she has not really responded to this clinically although she did have a couple of good urine output episodes. Exam Vital signs and Labs for Last 24 Hours: Temp Pulse Resp BP Pulse Ox 97.9 F 85 26 H 112/75 94 L 04/14/20 07:54 04/14/20 07:54 04/14/20 07:54 04/14/20 07:54 04/14/20 07:54 Laboratory Results - last 24 hr 04/13/20 09:40: Blood Type A Positive, Antibody Screen Negative, Crossmatch (AHG) See Detail 04/13/20 09:40: PT 14.6 H, INR 1.35 H 04/13/20 17:20: Hgb 9.7 L D, Hct 29.9 L I & O for Last 24 hours: Intake & Output 04/11/20 04/12/20 04/13/20 04/14/20 11:59 11:59 11:59 11:59 Intake Total 1596 / 1596 746 / 746 1434 / 1434 530 / 530 Output Total 1100 / 1100 625 / 625 325 / 325 Balance 496 / 496 121 / 121 1109 / 1109 530 / 530 Weight 185 lb 2 oz 189 lb 6 oz 193 lb 3 oz 192 lb 1 oz Microbiology Reports for the Last 24 Hours: Microbiology 04/13/20 10:25 Nasopharyngeal Coronavirus COVID-19 PCR - Final Narrative: Patient is somnolent, when arousable she will respond with one-word answers but then falls back to sleep and is breathing much more deeply than she was yesterday. This is certainly a change. Her lungs have rhonchi but good air movement. Heart rate irregular, abdomen is soft, extremities are well-perfused, no edema in her ankles. Neurologic exam difficult because of her somnolence. Assessment and Plan (1) Chronic atrial fibrillation Status: Acute Category: Medical Code(s): I48.20 - Chronic atrial fibrillation, unspecified (2) Hip fracture Status: Acute Qualifiers: Encounter type: initial encounter Fracture type: closed Laterality: left Qualified Code(s): S72.002A - Fracture of unspecified part of neck of left femur, initial encounter for closed fracture Category: Medical Code(s): S72.009A - Fracture of unspecified part of neck of unspecified femur, initial encounter for closed fracture (3) Obesity (BMI 30.0-34.9) Status: Chronic Category: Medical Code(s): E66.9 - Obesity, unspecified (4) Prolonged INR Status: Acute Category: Medical Code(s): R79.1 - Abnormal coagulation profile (5) ELROY (acute kidney injury) Status: Acute Category: Medical Code(s): N17.9 - Acute kidney failure, unspecified (6) UTI (urinary tract infection) Status: Resolved Qualifiers: Urinary tract infection type: acute cystitis Category: Medical Code(s): N39.0 - Urinary tract infection, site not specified - Assessment and plan all Dx Assessment and Plan for all problems:: Clinical change of uncertain etiology, possible fluid overload, Lasix today, check chest x-ray, check labs. Cardiology consultation from previous episode A. fib episode to see if they think another echo is warranted. Nebulizer treatments continue.
[2020-04-14 08:51] LABS: Basophils # 0.1 K/mm3 (0-0.2); Basophils % 0.8 % (0.1-2.0); Eosinophils # 0.3 K/mm3 (0.0-0.4); Eosinophils % 2.6 % (0.1-12.0); Hematocrit 29.2 % (37.0-47.0); Hemoglobin 9.2 g/dL (12.2-16.2); Lymphocytes # 1.8 K/mm3 (0.7-4.5); Lymphocytes % 14.1 % (10-50); Mean Corpuscular HGB Conc 31.3 g/dL (31.8-35.4); Mean Corpuscular Hemoglobin 29.5 pg (27.0-31.2); Mean Corpuscular Volume 94.1 fl (81-99); Mean Platelet Volume 7.3 fl (7.4-10.4); Monocytes # 0.9 K/mm3 (0.1-1.0); Monocytes % 7.5 % (1.7-9.3); Neutrophils # 9.5 K/mm3 (1.8-7.8); Platelet Count 282 K/mm3 (142-424); Red Blood Count 3.11 M/mm3 (4.20-5.40); Red Cell Distribution Width 14.5 % (11.5-17.5); White Blood Count 12.6 K/mm3 (4.8-10.8)
[2020-04-14 08:57] LABS: Chloride 107 mmol/L (98-107); Potassium 4.1 mmoL/L (3.5-5.1); Sodium 138 mmol/L (136-145)
[2020-04-14 08:59] LABS: Blood Urea Nitrogen 19 mg/dl (7-17)
[2020-04-14 09:00] LABS: Alanine Aminotransferase 24 U/L (12-78); Albumin Level 2.9 g/dl (3.5-5.0); Albumin/Globulin Ratio 0.9 (1.1-1.8); Alkaline Phosphatase 74 U/L (38-126); Anion Gap 5.1 mEq/L (5-15); Aspartate Amino Transferase 33 U/L (14-36); Bilirubin,Total 0.8 mg/dl (0.2-1.3); Carbon Dioxide 30 mmol/L (22.0-30.0); Creatinine Clearance Estimated 57 mL/min (50-200); Estimated Glomerular Filt Rate 60 ml/min (>60); GFR (African American) 72 ML/MIN (>60); Globulin 3.2 g/dL (1.3-3.2); Glucose 98 mg/dl (74-100); Total Protein,Serum 6.1 g/dl (6.3-8.2)
[2020-04-14 09:06] LABS: INR 1.45 (0.9-1.1); Prothrombin Time 15.6 seconds (9.4-11.8)
[2020-04-14 09:09] LABS: NT Pro Brain Natriuretic Pep. 3830 pg/mL (0-450)
--- NOTE | 2020-04-14 09:43 | HMH.PNCARD ---
Subjective Date: 04/14/20 Time: 08:00 Principal diagnosis: Intertrochanteric fracture, left femur and Atrial fib Interval history: 85-year-old white female in bed. Reportedly very hard of hearing but does open her eyes to verbal stimuli. She does not respond to questions. She does appear to be in some mild respiratory distress. Review of her eyes and nose show an increase in fluid of almost 3 L during her stay with normalization of her renal functions. Patient did receive 1 unit of blood yesterday due to hemoglobin of 8. Today her hemoglobin is 9.2. Exam Vital signs and Labs for Last 24 Hours: Temp Pulse Resp BP Pulse Ox 97.9 F 85 26 H 112/75 94 L 04/14/20 07:54 04/14/20 07:54 04/14/20 07:54 04/14/20 07:54 04/14/20 07:54 Laboratory Results - last 24 hr 04/13/20 09:40: Blood Type A Positive, Antibody Screen Negative, Crossmatch (AHG) See Detail 04/13/20 09:40: PT 14.6 H, INR 1.35 H 04/13/20 17:20: Hgb 9.7 L D, Hct 29.9 L 04/14/20 08:35: PT 15.6 H, INR 1.45 H 04/14/20 08:35: WBC 12.6 H, RBC 3.11 L, Hgb 9.2 L, Hct 29.2 L, MCV 94.1, MCH 29.5, MCHC 31.3 L, RDW 14.5, Plt Count 282, MPV 7.3 L, Neut % (Auto) 75.0, Lymph % (Auto) 14.1, [place] % (Auto) 7.5, Eos % (Auto) 2.6, Baso % (Auto) 0.8, Neut # (Auto) 9.5 H, Lymph # (Auto) 1.8, [place] # (Auto) 0.9, Eos # (Auto) 0.3, Baso # (Auto) 0.1 04/14/20 08:35: Sodium 138, Potassium 4.1, Chloride 107, Carbon Dioxide 30, Anion Gap 5.1, BUN 19 H D, Creatinine 0.90, Estimated Creat Clear 57, Estimated GFR 60, Est GFR ( Amer) 72, Glucose 98, Calcium 9.0, Total Bilirubin 0.8, AST 33, ALT 24 D, Alkaline Phosphatase 74, Total Protein 6.1 L, Albumin 2.9 L, Globulin 3.2, Albumin/Globulin Ratio 0.9 L 04/14/20 08:35: NT-Pro-B Natriuret Pep 3830 H I & O for Last 24 hours: Intake & Output 04/11/20 04/12/20 04/13/20 04/14/20 11:59 11:59 11:59 11:59 Intake Total 1596 / 1596 746 / 746 1434 / 1434 530 / 530 Output Total 1100 / 1100 625 / 625 325 / 325 Balance 496 / 496 121 / 121 1109 / 1109 530 / 530 Weight 185 lb 2 oz 189 lb 6 oz 193 lb 3 oz 192 lb 1 oz Microbiology Reports for the Last 24 Hours: Microbiology 04/13/20 10:25 Nasopharyngeal Coronavirus COVID-19 PCR - Final - Constitutional no acute distress - *Routine HEENT Exam Head: Present: normocephalic Eye: Present: EOMI, PERRL ENT: Present: mucous membranes moist - *Routine Neck Exam Present: supple. Absent: lymphadenopathy - *Routine Respiratory Exam Present: accessory muscle use, decreased breath sounds, wheezes, diminished air movement - *Routine Cardiovascular Exam Present: RRR - *Routine Abdominal Exam Present: soft, normoactive bowel sounds. Absent: tenderness - *Routine Extremities Exam Present: edema. Absent: cyanosis, clubbing - *Routine Skin Exam Present: warm. Absent: rash - *Routine Neurological Exam Present: alert Progress Note: A&P (1) Chronic atrial fibrillation Status: Acute (2) Hip fracture Status: Acute (3) Obesity (BMI 30.0-34.9) Status: Chronic (4) Prolonged INR Status: Acute (5) ELROY (acute kidney injury) Status: Acute (6) UTI (urinary tract infection) Status: Resolved Assessment and Plan for All Diagnoses:: 1. Mild respiratory distress with increased markings on chest x-ray indicative of pulmonary edema. IV Lasix has already been given per Dr. Xie. Will await response for further treatment. 2. Chronic atrial fibrillation, controlled rate on metoprolol and diltiazem p.o. Oral anticoagulation has been restarted on 04/12/2020. INR today is noted to be 1.45. Patient has a [id number] score of at least 3 but due to recent fall and hip fracture, recommend running her Coumadin at a target INR of around 2 due to her high fall risk. 3. Fall with left hip fracture, status post surgical correction with intramedullary nail placement on 04/11/2020.
--- NOTE | 2020-04-14 10:02 | HMH.OTEV ---
OT Inpatient Evaluation Rehab OT IP Evaluation Start: 04/11/20 18:49 Freq: ONCE Status: Complete Protocol: Document 04/14/20 09:51 SILKE (Rec: 04/14/20 10:02 [facility] [id number] Rehab OT IP Assessment Subjective History I want my parents to come and pick me up. Pt oriented to self and birthday, but not oriented to place. Pt unable to provide previous function level due to being a poor historian. Pt is very confused and asking for her parents to come and get her. Pt reluctant to engage in therapy session. Pt was admitted on 04/08/20 via ED after a fall at [facility] [place]. Pt's fall resulted in a left hip fx rqeuiring surgery on 04/11/20. Pt was max/dependent assistance x3 to complete bed mobility and go from supine to sitting at eob. Pt then completed stand pivot transer from bed to chair with max/ dependent x3. Subjective Call my parents. Objective Patient Orientation Person,Birthday Upper Extremity Gross ROM WFL Bed Mobility bed mobility-scooting,bed mobility - supine/sit,bed mobility - rolling Assist Level Total/Dependent (100%) Transfer Training Sit/Stand/Pivot Transfer Assist Level Total/Dependent (100%) Chair Transfer Ability Total/Dependent (100%) Chair Transfer Technique Stand Pivot Rehab OT IP prob,goals,plan Problems Date of Evaluation: 04/14/20 OT IP Problems Bed Mobility,Transfers,Gait, Balance,Self care,Safety Rehab Potential Rehab Potential Good Equipment Needs Assistive Devices Rolling / Wheeled Walker Plan OT intervention Plan Bed Mobility,Transfers,Gait, Balance,Self care,Safety, Therapeutic Exercise OT Plan Frequency Daily Duration LOS Discharge Goals Bed Mobility Ability Assistance x1 Sit to Stand Chair Transfer Ability Moderate x 2 (50% assist) Chair Transfer Ability Moderate x 2 (50% assist) Chair Transfer
--- NOTE | 2020-04-14 10:52 | DIET.NUTRFU ---
Pt with decrease PO intakes to 25%, with fair tolerance and requiring cueing at times. Weight stable. Pulmonary edema noted. Renal function improved. Pt was given regular diet per MD after procedure on 04/11, concur with this. No indication sodium restriction at this time as intakes are continually low, will monitor and alter as indicated. Daily protein shake on diet order and soft modifications made for pt's safety. Encouragement/cueing at meal times and offerings supplements/snacks or meal replacements with meal refusals appreciated.
--- NOTE | 2020-04-14 14:27 | HMH.ORTHPN ---
Subjective Date: 04/14/20 Time: 14:00 Principal diagnosis: Intertrochanteric fracture, left femur and Atrial fib Interval history: 85-year-old F, status post cephalo-medullary nailing LEFT hip post op day # 3. She is lying down on bed. Nursing staff reports that she has been somewhat drowsy and confused. No history of any fevers, chills or rigors. No history of any nausea, vomiting, chest pain or SOB. She had a blood transfusion yesterday and her post transfusion H and H is 9.2 /29.2. PN: Obj Ex Vital signs: Temp Pulse Resp BP Pulse Ox 97.9 F 85 26 H 112/75 94 L 04/14/20 07:54 04/14/20 07:54 04/14/20 07:54 04/14/20 07:54 04/14/20 07:54 Narrative: Laboratory Results - last 24 hr 04/13/20 09:40: Crossmatch (AHG) See Detail 04/13/20 17:20: Hgb 9.7 L D, Hct 29.9 L 04/14/20 08:35: PT 15.6 H, INR 1.45 H 04/14/20 08:35: WBC 12.6 H, RBC 3.11 L, Hgb 9.2 L, Hct 29.2 L, MCV 94.1, MCH 29.5, MCHC 31.3 L, RDW 14.5, Plt Count 282, MPV 7.3 L, Neut % (Auto) 75.0, Lymph % (Auto) 14.1, [place] % (Auto) 7.5, Eos % (Auto) 2.6, Baso % (Auto) 0.8, Neut # (Auto) 9.5 H, Lymph # (Auto) 1.8, [place] # (Auto) 0.9, Eos # (Auto) 0.3, Baso # (Auto) 0.1 04/14/20 08:35: Sodium 138, Potassium 4.1, Chloride 107, Carbon Dioxide 30, Anion Gap 5.1, BUN 19 H D, Creatinine 0.90, Estimated Creat Clear 57, Estimated GFR 60, Est GFR ( Amer) 72, Glucose 98, Calcium 9.0, Total Bilirubin 0.8, AST 33, ALT 24 D, Alkaline Phosphatase 74, Total Protein 6.1 L, Albumin 2.9 L, Globulin 3.2, Albumin/Globulin Ratio 0.9 L 04/14/20 08:35: NT-Pro-B Natriuret Pep 3830 H Exam: General appearance: Drowsy, no acute distress Cardiovascular: Irregularly irregular rhythm Respiratory: no respiratory distress noted ABD: soft and nontender. Skin: Multiple areas of ecchymosis and skin tears On examination of the LEFT lower extremity, the limb lengths are equal. The alignment is neutral. The dressings over the hip/thigh are clean, dry and intact. I have changed the dressings today and all the incisions appear healthy. Attempted movements of the hip are painful. Distal neurovascular status is intact. Dorsalis pedis 1+. Distal sensation is intact to light touch throughout. Calf is soft and nontender. No clinical signs of DVT noted. - Urinary Catheter Management Camejo Cath placed during this visit: no Progress Note: A&P (1) Chronic atrial fibrillation Status: Acute (2) Hip fracture Status: Acute (3) Obesity (BMI 30.0-34.9) Status: Chronic (4) Prolonged INR Status: Acute (5) ELROY (acute kidney injury) Status: Acute (6) UTI (urinary tract infection) Status: Resolved Assessment and Plan for All Diagnoses:: I have reviewed the clinical findings and progress. Patient is doing well from an orthopedic standpoint. However, her general condition has somewhat deteriorated overnight and she may be fluid overloaded. She is being treated appropriately for this. Continue PT/OT, pain management with as needed analgesics. Patient is going to be transferred back to the intermediate when appropriate from a medical standpoint. From an orthopedic standpoint, patient can be discharged tomorrow if medically appropriate. Patient is on long-term warfarin which should be appropriate for DVT prophylaxis. Follow-up in my office in 2 weeks? time with check x-ray. Please feel free to call our office at [phone] for any orthopaedic questions. Continue medical management as per Dr. Xie.
--- NOTE | 2020-04-14 19:39 | PC.NURSE ---
Pt has been confused this shift, insisting that staff are out to get me . Believes we are holding her in a mental hospital, but does state that she is at [facility]. Persistent that she just wants to go home. Remains on 2 L O2 per nasal cannula, is breathing much easier than she appeared this AM. Lungs remains coarse. Abdomen large, non-tender. No BM this shift. Incontinent of urine this shift. Purewick in place to monitor I&O's. Pt has had over 1 L out this shift. Scattered bruising, skin tears noted. Surg dressing to left hip assessed by Dr. Crowell and changed, currently C/D/I. Pt was a max assist to chair and back to bed. Pain meds given per APR. Bed alarm in place for safety. Pt's daughter called and was updated on plan of care.
--- NOTE | 2020-04-14 20:28 | PC.NURSE ---
RA sat 83%. Return to 2l
--- NOTE | 2020-04-15 03:45 | PC.NURSE ---
Pt has been oriented to name, , and situation at times this shift. Pt was very agitated at the beginning of the shift stating I'm ready to go home, you all are holding me against my will. Pt was reassured she is safe and at [facility]. PRN risperdal administered w/ favorable results. Pt has c/o lower back pain z1 this shift, PRN pain meds administered. Pt is currently resting in bed @ this time w/ eyes closed. Fine crackles heard @ pt's bilat bases per auscultation, no cough noted. Pt remain son 2 L NC. Pt RA 86% this shift. Pt is urinating clear, dark yellow urine. Purewick remains in place. Active bowel sounds in all 4 quads, no BM noted. Pt was turned q2h this shift, and has refused oral care each time staff attempts to perform. +1 pitting edema noted to BLE. VSS. No other acute changes or complaints at this time.
[2020-04-15 04:00] VITALS: BP 118/68; PULSE 93; RESP 20; TEMP 36.5; O2SAT 90
[2020-04-15 05:00] VITALS: BMI 34.2
[2020-04-15 06:50] LABS: Basophils # 0.1 K/mm3 (0-0.2); Basophils % 0.6 % (0.1-2.0); Eosinophils # 0.4 K/mm3 (0.0-0.4); Eosinophils % 3.4 % (0.1-12.0); Hemoglobin 9.6 g/dL (12.2-16.2); Lymphocytes # 1.6 K/mm3 (0.7-4.5); Lymphocytes % 15.2 % (10-50); Mean Corpuscular HGB Conc 31.9 g/dL (31.8-35.4); Mean Corpuscular Hemoglobin 29.7 pg (27.0-31.2); Mean Corpuscular Volume 93.1 fl (81-99); Mean Platelet Volume 7.6 fl (7.4-10.4); Monocytes # 0.8 K/mm3 (0.1-1.0); Monocytes % 7.4 % (1.7-9.3); Neutrophils # 7.8 K/mm3 (1.8-7.8); Neutrophils % 73.4 % (37.0-80.0); Platelet Count 297 K/mm3 (142-424); Red Blood Count 3.22 M/mm3 (4.20-5.40); Red Cell Distribution Width 14.7 % (11.5-17.5); White Blood Count 10.6 K/mm3 (4.8-10.8)
[2020-04-15 06:54] LABS: Chloride 102 mmol/L (98-107); Potassium 3.8 mmoL/L (3.5-5.1); Sodium 138 mmol/L (136-145)
[2020-04-15 06:57] LABS: Anion Gap 6.8 mEq/L (5-15); Blood Urea Nitrogen 19 mg/dl (7-17); Carbon Dioxide 33 mmol/L (22.0-30.0); Creatinine Clearance Estimated 57 mL/min (50-200); Estimated Glomerular Filt Rate 80 ml/min (>60); GFR (African American) 96 ML/MIN (>60); Glucose 95 mg/dl (74-100)
--- NOTE | 2020-04-15 07:14 | HMH.PNCARD ---
Subjective Date: 04/15/20 Time: 07:14 Principal diagnosis: Intertrochanteric fracture, left femur and Atrial fib Interval history: 85-year-old white female in bed eating breakfast in no acute distress. States she is breathing and feeling better than yesterday. Patient does have significant cough after eating and drinking. Patient keeps asking to be pushed into the waiting room which she thinks is just through one of the doors in her room. She does realize she is in the hospital. Exam Vital signs and Labs for Last 24 Hours: Temp Pulse Resp BP Pulse Ox 97.7 F 93 H 20 118/68 90 L 04/15/20 04:00 04/15/20 04:00 04/15/20 04:00 04/15/20 04:00 04/15/20 04:00 Laboratory Results - last 24 hr 04/14/20 08:35: PT 15.6 H, INR 1.45 H 04/14/20 08:35: WBC 12.6 H, RBC 3.11 L, Hgb 9.2 L, Hct 29.2 L, MCV 94.1, MCH 29.5, MCHC 31.3 L, RDW 14.5, Plt Count 282, MPV 7.3 L, Neut % (Auto) 75.0, Lymph % (Auto) 14.1, [place] % (Auto) 7.5, Eos % (Auto) 2.6, Baso % (Auto) 0.8, Neut # (Auto) 9.5 H, Lymph # (Auto) 1.8, [place] # (Auto) 0.9, Eos # (Auto) 0.3, Baso # (Auto) 0.1 04/14/20 08:35: Sodium 138, Potassium 4.1, Chloride 107, Carbon Dioxide 30, Anion Gap 5.1, BUN 19 H D, Creatinine 0.90, Estimated Creat Clear 57, Estimated GFR 60, Est GFR ( Amer) 72, Glucose 98, Calcium 9.0, Total Bilirubin 0.8, AST 33, ALT 24 D, Alkaline Phosphatase 74, Total Protein 6.1 L, Albumin 2.9 L, Globulin 3.2, Albumin/Globulin Ratio 0.9 L 04/14/20 08:35: NT-Pro-B Natriuret Pep 3830 H 04/15/20 06:24: WBC 10.6, RBC 3.22 L, Hgb 9.6 L, Hct 30.0 L, MCV 93.1, MCH 29.7, MCHC 31.9, RDW 14.7, Plt Count 297, MPV 7.6, Neut % (Auto) 73.4, Lymph % (Auto) 15.2, [place] % (Auto) 7.4, Eos % (Auto) 3.4, Baso % (Auto) 0.6, Neut # (Auto) 7.8, Lymph # (Auto) 1.6, [place] # (Auto) 0.8, Eos # (Auto) 0.4, Baso # (Auto) 0.1 04/15/20 06:24: Sodium 138, Potassium 3.8, Chloride 102, Carbon Dioxide 33 H, Anion Gap 6.8, BUN 19 H, Creatinine 0.70 D, Estimated Creat Clear 57, Estimated GFR 80, Est GFR ( Amer) 96 D, Glucose 95, Calcium 9.0 I & O for Last 24 hours: Intake & Output 04/12/20 04/13/20 04/14/20 04/15/20 11:59 11:59 11:59 11:59 Intake Total 746 / 746 1434 / 1434 530 / 530 1539 / 1539 Output Total 625 / 625 325 / 325 1600 / 1600 Balance 121 / 121 1109 / 1109 530 / 530 -61 / -61 Weight 189 lb 6 oz 193 lb 3 oz 192 lb 1 oz - *Routine Respiratory Exam Present: CTA bilaterally, wheezes - *Routine Cardiovascular Exam Present: irregularly irregular - *Routine Extremities Exam Present: edema. Absent: cyanosis, clubbing Progress Note: A&P (1) Chronic atrial fibrillation Status: Acute (2) Hip fracture Status: Acute (3) Obesity (BMI 30.0-34.9) Status: Chronic (4) Prolonged INR Status: Acute (5) ELROY (acute kidney injury) Status: Acute (6) UTI (urinary tract infection) Status: Resolved Assessment and Plan for All Diagnoses:: 1. A. fib with controlled ventricular response. Continue metoprolol 200 mg daily and will switch short acting diltiazem to long-acting 120 mg daily. Warfarin discontinued due to high fall risk. 2. Status post fall with hip fracture and surgical correction. Patient will be on postop Lovenox therapy as directed per Ortho. 3. Anemia status post blood transfusion with hemoglobin stable at 9.6 4. Fluid overload with mild congestive heart failure, responded well to IV diuretics. We will repeat dosing today. And give supplemental potassium due to mild dropping potassium level. 5. Cough after eating and drinking. Defer work-up to PCP. Cardiac status stable. Okay for discharge when cleared from PCP standpoint.
[2020-04-15 07:26] LABS: INR 1.71 (0.9-1.1); Prothrombin Time 18.1 seconds (9.4-11.8)
[2020-04-15 07:39] VITALS: BP 121/76; PULSE 94; RESP 20; TEMP 36.7; O2SAT 96
--- NOTE | 2020-04-15 11:25 | HMH.ACPN2 ---
Internal Medicine - PN: Subj *Date: 04/15/20 *Time: 11:25 Exam Vital signs and Labs for Last 24 Hours: Temp Pulse Resp BP Pulse Ox 98.1 F 94 H 20 121/76 96 04/15/20 07:39 04/15/20 07:39 04/15/20 07:39 04/15/20 07:39 04/15/20 07:39 Laboratory Results - last 24 hr 04/15/20 06:24: PT 18.1 H, INR 1.71 H 04/15/20 06:24: WBC 10.6, RBC 3.22 L, Hgb 9.6 L, Hct 30.0 L, MCV 93.1, MCH 29.7, MCHC 31.9, RDW 14.7, Plt Count 297, MPV 7.6, Neut % (Auto) 73.4, Lymph % (Auto) 15.2, [place] % (Auto) 7.4, Eos % (Auto) 3.4, Baso % (Auto) 0.6, Neut # (Auto) 7.8, Lymph # (Auto) 1.6, [place] # (Auto) 0.8, Eos # (Auto) 0.4, Baso # (Auto) 0.1 04/15/20 06:24: Sodium 138, Potassium 3.8, Chloride 102, Carbon Dioxide 33 H, Anion Gap 6.8, BUN 19 H, Creatinine 0.70 D, Estimated Creat Clear 57, Estimated GFR 80, Est GFR ( Amer) 96 D, Glucose 95, Calcium 9.0 I & O for Last 24 hours: Intake & Output 04/12/20 04/13/20 04/14/20 04/15/20 23:59 23:59 23:59 23:59 Intake Total 866 / 866 1844 / 1844 180 / 180 1479 / 1479 Output Total 225 / 225 325 / 325 1200 / 1200 400 / 400 Balance 641 / 641 1519 / 1519 -1020 / -1020 1079 / 1079 Weight 85.899 kg 87.628 kg 87.118 kg 84.482 kg Assessment and Plan (1) Chronic atrial fibrillation Status: Acute Category: Medical Code(s): I48.20 - Chronic atrial fibrillation, unspecified (2) Hip fracture Status: Acute Qualifiers: Encounter type: initial encounter Fracture type: closed Laterality: left Qualified Code(s): S72.002A - Fracture of unspecified part of neck of left femur, initial encounter for closed fracture Category: Medical Code(s): S72.009A - Fracture of unspecified part of neck of unspecified femur, initial encounter for closed fracture (3) Obesity (BMI 30.0-34.9) Status: Chronic Category: Medical Code(s): E66.9 - Obesity, unspecified (4) Prolonged INR Status: Acute Category: Medical Code(s): R79.1 - Abnormal coagulation profile (5) ELROY (acute kidney injury) Status: Acute Category: Medical Code(s): N17.9 - Acute kidney failure, unspecified (6) UTI (urinary tract infection) Status: Resolved Qualifiers: Urinary tract infection type: acute cystitis Category: Medical Code(s): N39.0 - Urinary tract infection, site not specified
--- NOTE | 2020-04-15 11:40 | HMH.DCSUM ---
General - General Admission date:: 04/08/20 Discharge date: 04/15/20 HPI HPI: 85-year-old white female on warfarin therapy chronically who fell in the bathroom at her personal [facility] and had intense pain, transferred to emergency department where she was found to have fracture of the intertrochanteric left hip. Admitted to hospital for orthopedic consultation and further management. Complicating her factors is her elevated INR at 5. Hospital Course Hospital Course: Gem an 85-year-old female with multiple comorbidities admitted for hip fracture, A. fib with RVR, and supratherapeutic INR. Orthopedics consulted on admission along with cardiology. Patient cleared for surgery once INR improved to less than 1.5. Monitor labs for 3 days before INR at a level that surgery could proceed. Orthopedics proceeded with fixation of left hip fracture. Tolerated surgery well, no acute complications. Did have a slight drop in her hemoglobin level necessitating 1 unit of packed red blood cell transfusion. Has otherwise remained stable during admission. In regard to A. fib with RVR, was initiated on diltiazem at cardiology's recommendations. Has tolerated that well with good control of her heart rate. Transition to once a day long-acting diltiazem. Continue her previous metoprolol as well for rate control. Stopped her losartan given blood pressure control at goal on current regimen. We will hold on warfarin given risk of fall and a bleed. Continue Lovenox prophylactically for DVT in the setting of recent hip fracture/surgery. Will reevaluate anticoagulation as she completes Lovenox therapy. Physical therapy is working with patient daily, continue physical therapy in the outpatient setting with goal of improving mobility and resuming ambulation Patient had some concern for swallowing difficulty. Speech was consulted, patient ultimately determined to have significant mucus in her posterior oropharynx. Cleared with coughing. Speech eval showed no concern for aspiration. Recommended mechanical soft diet, no other restrictions. Delores, noted to have UTI on admission. Suspect this may have been a source of some mild confusion in her fall. Treated with Unasyn during admission. Will complete course with amoxicillin-clavulinic acid for total of 10 days of antibiotics. At this time, patient denies shortness of breath, chest pain, nausea, vomiting. Medically stable for discharge back to her correction for continued therapy. Objective Vital signs: Temp Pulse Resp BP Pulse Ox 98.1 F 94 H 20 121/76 96 04/15/20 07:39 04/15/20 07:39 04/15/20 07:39 04/15/20 07:39 04/15/20 07:39 no acute distress, obese, chronically ill appearing, cooperative - *Routine HEENT Exam Head: Present: normocephalic Eye: Present: EOMI, PERRL ENT: Present: mucous membranes moist - *Routine Neck Exam Present: supple - *Routine Respiratory Exam Present: other Comments: Bilaterally, rhonchi that move with cough. Faint wheeze posterior lung field on right lung, no crackles - *Routine Cardiovascular Exam Present: RRR - *Routine Abdominal Exam Present: soft, normoactive bowel sounds. Absent: tenderness - *Routine Extremities Exam Present: edema (1+ to knees). Absent: cyanosis, clubbing Comments: Left thigh postsurgical wound clean dry and intact, no active bleeding. Minimal tenderness around wound - *Routine Skin Exam Present: warm. Absent: rash Results Labs on day of discharge: Labs from last 24 hours 04/15/20 04/15/20 04/15/20 06:24 06:24 06:24 WBC 10.6 RBC 3.22 L Hgb 9.6 L Hct 30.0 L MCV 93.1 MCH 29.7 MCHC 31.9 RDW 14.7 Plt Count 297 MPV 7.6 Neut % (Auto) 73.4 Lymph % (Auto) 15.2 [place] % (Auto) 7.4 Eos % (Auto) 3.4 Baso % (Auto) 0.6 Neut # (Auto) 7.8 Lymph # (Auto) 1.6 [place] # (Auto) 0.8 Eos # (Auto) 0.4 Baso # (Auto) 0.1 PT 18.1
--- NOTE | 2020-04-15 12:14 | HMH.SLDYSPHA ---
Speech & Language Evaluation Speech/Language Dysphagia Evaluation Start: 04/15/20 11:43 Freq: ONCE Status: Active Protocol: Document 04/15/20 11:43 CMAY (Rec: 04/15/20 12:14 CMAY [id number]) Dysphagia Assess/Goals/Plan Assessment Date of Evaluation: 04/15/20 Evaluation Type Initial Certification Assessment/Problems Dysphagia; Patient coughing after eating/drinking Does Patient Qualify for Service No Qualify/Failure Comment Patient does not qualify for ST services at this time based on the results of today's evaluation. Dietary changes were implemented for patient's safety during intake. Recommendations PHYSICIAN CERTIFICATION: The specified therapy services are required, authorized, and reviewed every 30 days. Diet Recommendations Mechanical Soft Liquid Type Recommendations Normal/Thin SL Swallow Guidelines Alt bite w/sip thru meal, Standard Aspiration Prec.,Eat at slow rate,Oral care pre/ post meals Dysphagia Swallow Precautions/Strategies Sitting Upright (90 deg),Small Bites and Sips,Alternate Liquids/Solids Plan Pt/Guardian verbally ack understanding Yes of dx/prognosis/goals G -code Required No Education Instructions provided Education provided to patient regarding swallowing safety strategies to implement such as sitting upright during intake, taking small bites/ sips, alternating between solids and liquids, continuing to eat at a slow rate ( patient voices she already does this) and sitting upright for at least 30 minutes following intake. Pt/Caregiver able to recall information Reinforcement needed Reinforcement needed Yes: Pt has dementia and will need reinforcement Speech & Language HPI Hearing Hearing Ability Use of Hearing Aid Comment Pt [place]. Language Primary Language Lithuanian General Information General Current Food Consistancy Regular,Chopped Meats,Thin Liquids Dentition Good Dentition Oxygen Status Room Air Facial Symmetry Symmetrical Ability to Follow Directions Good Communication Abil
== END 2020-04-15 14:55 | DRG 481 ==
LOC: ER 23:11 → 2ND 23:34
PROVIDERS: Internal Medicine Adolescent Medicine; Orthopaedic Surgery; Admitting Provider Emergency Medicine; Emergency Provider Emergency Medicine; PCP Internal Medicine Adolescent Medicine; Visit Provider Internal Medicine Adolescent Medicine
PROC: 0QS706Z Reposition Left Upper Femur with Intramedullary Internal Fixation Device, Open Approach (ICD-10-PCS; CPT 27245; principal; 2020-04-11 12:15)
DX: S72.142A Displaced intertrochanteric fracture of left femur, initial encounter for closed fracture (principal); I48.20 Chronic atrial fibrillation, unspecified; N39.0 Urinary tract infection, site not specified; W01.0XXA Fall on same level from slipping, tripping and stumbling without subsequent striking against object, initial encounter; Y92.091 Bathroom in other non-institutional residence as the place of occurrence of the external cause; I11.0 Hypertensive heart disease with heart failure; I50.9 Heart failure, unspecified; E78.5 Hyperlipidemia, unspecified; R79.1 Abnormal coagulation profile; E03.9 Hypothyroidism, unspecified; Z87.891 Personal history of nicotine dependence; Z88.0 Allergy status to penicillin; Z79.899 Other long term (current) drug therapy; Z79.01 Long term (current) use of anticoagulants
CPT/HCPCS: 27245; 36415; 70450; 71045; 72125; 72170; 73502; 73552; 73700; 76000; 80048; 80053; 81001; 83880; 84145; 85014; 85018; 85025; 85610; 85651; 86140; 86850; 87086; 87088; 87186; 87581; 87633; 87798; 92610; 93306; 94640; 94761; 96365; 96372; 96375; 97110; 97161; 97166; 97530; 97535; 99284; C1713; C1769; C1776; J2405; J3370; P9016; U0003

== ENCOUNTER → 2020-04-24 11:04 | Outpatient (REF) | payer MEDICARE, OTHER, SELFPAY ==
[2020-04-24 12:29] LABS: Chloride 101 mmol/L (98-107); Potassium 4.6 mmoL/L (3.5-5.1); Sodium 133 mmol/L (136-145)
[2020-04-24 12:32] LABS: Anion Gap 8.6 mEq/L (5-15); Blood Urea Nitrogen 19 mg/dl (7-17); Carbon Dioxide 28 mmol/L (22.0-30.0); Estimated Glomerular Filt Rate 80 ml/min (>60); GFR (African American) 96 ML/MIN (>60)
[2020-04-24 12:33] LABS: Calcium 9.2 mg/dl (8.4-10.2); Glucose 82 mg/dl (74-100)
== END ==
LOC: LAB.DROPOF 11:04
PROVIDERS: Visit Provider Nurse Practitioner Family
DX: R79.89 Other specified abnormal findings of blood chemistry (principal)
CPT/HCPCS: 80048

== ENCOUNTER → 2020-04-29 10:17 | Outpatient (CLI) | payer MEDICARE, OTHER, SELFPAY ==
--- NOTE | 2020-04-29 10:24 | XR_ITS ---
PROCEDURE: XR FEMUR LT 2V CLINICAL INDICATION: sp closed reduction nailing, lt femur Follow-up follow-up fracture COMPARISON: XA XR FEMUR LT 2V from 04/11/2020 FINDINGS: Status post ORIF left intertrochanteric fracture. Gamma nail with long intramedullary jose is in place. There is 9 mm lateral displacement of the distal fracture fragment. 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 IMPRESSION: Status post ORIF left intertrochanteric fracture with mild lateral displacement of the distal fracture fragment with good alignment. Dictated by: Kirill Washburn MD 04/29/2020 17:09 Kirill Washburn MD in [place] 04/29/2020 17:09
== END ==
PROVIDERS: PCP Internal Medicine Adolescent Medicine; Visit Provider Orthopaedic Surgery
DX: Z09 Encounter for follow-up examination after completed treatment for conditions other than malignant neoplasm (principal); S72.002A Fracture of unspecified part of neck of left femur, initial encounter for closed fracture
CPT/HCPCS: 73552

== ENCOUNTER → 2020-05-27 10:24 | Outpatient (CLI) | payer MEDICARE, OTHER, SELFPAY ==
--- NOTE | 2020-05-27 10:30 | XR_ITS ---
PROCEDURE: XR FEMUR LT 2V CLINICAL INDICATION: sp closed reduction nailing lt femur COMPARISON: CR XR FEMUR LT 2V from 04/29/2020 FINDINGS: Healing left intertrochanteric fracture is noted with the intramedullary jose and screw fixation of the left femur. Few foci focal ossific fragments are noted at the inferomedial aspect of the fracture, consistent with known comminuted fracture. No significant interval change compared to prior study. Osteopenia is noted. No significant soft tissue abnormality. IMPRESSION: Postsurgical changes with intramedullary jose and screw fixation of the left intertrochanteric fracture. Dictated by: Jeaneth Crowell 05/27/2020 11:17 Jeaneth Crowell in [place] 05/27/2020 11:17
== END ==
PROVIDERS: PCP Internal Medicine Adolescent Medicine; Visit Provider Orthopaedic Surgery
DX: Z09 Encounter for follow-up examination after completed treatment for conditions other than malignant neoplasm (principal)
CPT/HCPCS: 73552

== ENCOUNTER → 2020-09-02 14:00 | Outpatient (CLI) | payer MEDICARE, OTHER, SELFPAY ==
[2020-09-02 15:09] LABS: Basophils % 0.4 % (0.1-2.0); Eosinophils # 0.1 K/mm3 (0.0-0.4); Eosinophils % 0.9 % (0.1-12.0); Hemoglobin 12.2 g/dL (12.2-16.2); Lymphocytes # 1.3 K/mm3 (0.7-4.5); Lymphocytes % 14.8 % (10-50); Mean Corpuscular HGB Conc 32.9 g/dL (31.8-35.4); Mean Corpuscular Hemoglobin 29.1 pg (27.0-31.2); Mean Corpuscular Volume 88.4 fl (81-99); Mean Platelet Volume 7.8 fl (7.4-10.4); Monocytes # 0.5 K/mm3 (0.1-1.0); Monocytes % 4.9 % (1.7-9.3); Neutrophils # 7.2 K/mm3 (1.8-7.8); Platelet Count 223 K/mm3 (142-424); Red Blood Count 4.18 M/mm3 (4.20-5.40); Red Cell Distribution Width 14.8 % (11.5-17.5); White Blood Count 9.1 K/mm3 (4.8-10.8)
[2020-09-02 16:43] LABS: Alanine Aminotransferase 20 U/L (12-78); Albumin Level 3.5 g/dl (3.5-5.0); Albumin/Globulin Ratio 1.3 (1.1-1.8); Alkaline Phosphatase 73 U/L (38-126); Anion Gap 11.6 mEq/L (5-15); Aspartate Amino Transferase 29 U/L (14-36); Bilirubin,Total 0.8 mg/dl (0.2-1.3); Blood Urea Nitrogen 22 mg/dl (7-17); Calcium 9.1 mg/dl (8.4-10.2); Carbon Dioxide 36 mmol/L (22.0-30.0); Chloride 100 mmol/L (98-107); Estimated Glomerular Filt Rate 95 ml/min (>60); GFR (African American) 115 ML/MIN (>60); Globulin 2.7 g/dL (1.3-3.2); Glucose 91 mg/dl (74-100); Potassium 3.6 mmoL/L (3.5-5.1); Sodium 144 mmol/L (136-145); Total Protein,Serum 6.2 g/dl (6.3-8.2)
== END ==
PROVIDERS: Visit Provider Nurse Practitioner Family
DX: I11.0 Hypertensive heart disease with heart failure (principal)
CPT/HCPCS: 80053; 85025

== ENCOUNTER → 2021-10-09 11:43 | Outpatient (CLI) | payer MEDICARE, OTHER, MEDICAID, SELFPAY ==
[2021-10-09 13:04] LABS: Basophils % 0.5 % (0.1-2.0); Eosinophils # 0.2 K/mm3 (0.0-0.4); Eosinophils % 2.7 % (0.1-12.0); Hematocrit 41.2 % (37.0-47.0); Lymphocytes # 1.6 K/mm3 (0.7-4.5); Lymphocytes % 18.6 % (10-50); Mean Corpuscular HGB Conc 31.5 g/dL (31.8-35.4); Mean Corpuscular Volume 98.3 fl (81-99); Mean Platelet Volume 8.7 fl (7.4-10.4); Monocytes # 0.7 K/mm3 (0.1-1.0); Monocytes % 7.7 % (1.7-9.3); Neutrophils # 6.1 K/mm3 (1.8-7.8); Neutrophils % 70.4 % (37.0-80.0); Platelet Count 174 K/mm3 (142-424); Red Blood Count 4.19 M/mm3 (4.20-5.40); Red Cell Distribution Width 13.6 % (11.5-17.5); White Blood Count 8.7 K/mm3 (4.8-10.8)
[2021-10-09 13:50] LABS: Alanine Aminotransferase 15 U/L (12-78); Albumin Level 3.1 g/dl (3.5-5.0); Albumin/Globulin Ratio 1.2 (1.1-1.8); Alkaline Phosphatase 73 U/L (38-126); Aspartate Amino Transferase 26 U/L (14-36); Blood Urea Nitrogen 11 mg/dl (7-17); Calcium 8.7 mg/dl (8.4-10.2); Carbon Dioxide 34 mmol/L (22.0-30.0); Chloride 101 mmol/L (98-107); Estimated Glomerular Filt Rate 151 ml/min (>60); GFR (African American) 183 ML/MIN (>60); Globulin 2.5 g/dL (1.3-3.2); Glucose 82 mg/dl (74-100); Sodium 137 mmol/L (136-145); Total Protein,Serum 5.6 g/dl (6.3-8.2)
[2021-10-09 14:02] LABS: Bilirubin,Total < 0.1 mg/dl (0.2-1.3)
== END ==
PROVIDERS: PCP Internal Medicine Adolescent Medicine; Visit Provider Nurse Practitioner Family
DX: I11.0 Hypertensive heart disease with heart failure (principal); E78.5 Hyperlipidemia, unspecified
CPT/HCPCS: 80053; 85025

== ENCOUNTER → 2022-02-25 11:07 | Outpatient (CLI) | payer MEDICARE, OTHER, MEDICAID, SELFPAY ==
[2022-02-25 11:47] LABS: Basophils % 0.4 % (0.1-2.0); Eosinophils # 0.3 K/mm3 (0.0-0.4); Eosinophils % 4.9 % (0.1-12.0); Hematocrit 39.6 % (37.0-47.0); Hemoglobin 12.4 g/dL (12.2-16.2); Lymphocytes # 1.3 K/mm3 (0.7-4.5); Lymphocytes % 21.9 % (10-50); Mean Corpuscular HGB Conc 31.2 g/dL (31.8-35.4); Mean Corpuscular Hemoglobin 31.3 pg (27.0-31.2); Mean Corpuscular Volume 100.1 fl (81-99); Mean Platelet Volume 9.6 fl (7.4-10.4); Monocytes # 0.4 K/mm3 (0.1-1.0); Monocytes % 6.6 % (1.7-9.3); Neutrophils % 66.1 % (37.0-80.0); Platelet Count 167 K/mm3 (142-424); Red Blood Count 3.95 M/mm3 (4.20-5.40); Red Cell Distribution Width 13.7 % (11.5-17.5); White Blood Count 6.1 K/mm3 (4.8-10.8)
[2022-02-25 12:17] LABS: Blood Urea Nitrogen 21 mg/dl (7-17); Calcium 8.1 mg/dl (8.4-10.2); Carbon Dioxide 35 mmol/L (22.0-30.0); Chloride 102 mmol/L (98-107); Estimated Glomerular Filt Rate 95 ml/min (>60); GFR (African American) 115 ML/MIN (>60); Glucose 91 mg/dl (74-100); Sodium 140 mmol/L (136-145)
== END ==
PROVIDERS: PCP Internal Medicine Adolescent Medicine; Visit Provider Internal Medicine Adolescent Medicine
DX: I11.0 Hypertensive heart disease with heart failure (principal)
CPT/HCPCS: 80048; 85025